=== PATIENT | male | born 1945 | race Caucasian/White ===

== ENCOUNTER 2019-07-06 07:26 | Inpatient (IN) ==
--- NOTE | 2019-07-05 09:45 | XRay Report ---
CLINICAL INFORMATION: Preop. New diagnosis colon cancer COMPARISON: None. TECHNIQUE: PA and Lateral views FINDINGS: The heart size, mediastinum and pulmonary vessels are unremarkable. The lungs are clear. There are no effusions. The bones and soft tissues are within normal limits. IMPRESSION: Normal chest. No acute cardiopulmonary or metastatic disease Interpreted and Authenticated by: Florin Rich 07/05/19
[2019-07-05 11:30] LABS: Basophils # (Auto) 0.02 K/mcL (0.00-0.30); Basophils % (Auto) 0.3 % (0.0-2.0); Eosinophils # (Auto) 0.16 K/mcL (0.00-0.70); Granulocytes % (Auto) 56.6 % (38.0-78.0); Hemoglobin 12.3 g/dL (13.7-17.5); Lymphocytes # (Auto) 2.35 K/mcL (1.50-4.80); Lymphocytes % (Auto) 29.9 % (15.5-49.0); Mean Cell Volume 73.4 fL (80.0-100.0); Mean Corpuscular HGB Conc 31.5 g/dL (31.0-36.0); Mean Platelet Volume 9.9 fL (7.4-10.4); Monocytes # (Auto) 0.88 K/mcL (0.10-0.90); Monocytes % (Auto) 11.2 % (1.0-12.0); Platelet Count 369 K/mcL (140-440); RBC 5.31 M/mcL (4.63-6.08); Red Cell Distribution Width 17.7 % (11.5-14.5); WBC 7.9 K/mcL (4.50-11.00)
[2019-07-05 11:40] LABS: Prothrombin Time 13.3 sec (11.9-14.5)
[2019-07-05 11:41] LABS: ALT/SGPT 17 U/l (0-40); AST/SGOT 20 U/l (0-37); Albumin 4.5 gm/dL (3.2-5.2); Albumin/Globulin Ratio 1.5 (1.0-2.3); Alkaline Phosphatase 83 U/L (39-117); Bilirubin,Total 0.3 mg/dL (0.0-1.0); Blood Urea Nitrogen 17 mg/dl (8-23); Calcium 9.9 mg/dl (8.6-10.4); Carbon Dioxide 23 mmol/L (22-30); Chloride 98 mmol/L (96-108); Globulin 3.1 gm/dL (2.2-3.7); Glomerular Filtration Rate 73; Glucose 123 mg/dL (70-105)
[2019-07-05 11:49] LABS: Estimated Average Glucose(eAG) 160 mg/dL; Hemoglobin A1C 7.2 % HGB (4.0-6.0)
[~2019-07-06 07:26] MED LIST: ceFAZolin 2 GM in DEXTROSE 5% IN WATER 50 ML IV SCH; metroNIDAZOLE 500 MG/100 ML BAG IV SCH
[2019-07-06] MEDS ORDERED: SCOPOLAMINE 1 PATCH PATCH TOPICAL PRN (07:30)
[2019-07-06] MEDS ORDERED: IPRATROPIUM/ALBUTEROL 3 ML AMPUL.NEB NEB PRN ×2 (07:30→12:16)
[2019-07-06] MEDS ORDERED: MAGNESIUM SULFATE 2 GM/50 ML BAG IV ONE ×2 (08:20→09:25)
[2019-07-06] MEDS ORDERED: DEXAMETHASONE 10 MG/ML VIAL IV ONE (09:25)
[2019-07-06] MEDS ORDERED: MIDAZOLAM 2 MG/2 ML VIAL IV ONE (09:25)
[2019-07-06] MEDS ORDERED: HETASTARCH 6% 500 ML BAG IV ONE (09:25)
[2019-07-06] MEDS ORDERED: GLYCOPYRROLATE 0.2 MG/ML VIAL IV ONE (09:25)
[2019-07-06] MEDS ORDERED: PHENYLEPHRINE 10 MG/ML VIAL IV ONE ×2 (09:25)
[2019-07-06] MEDS ORDERED: SUCCINYLCHOLINE 20 MG/ML ML IV ONE (09:25)
[2019-07-06] MEDS ORDERED: HYDROmorphone* 2 MG/ML VIAL IV ONE (09:25)
[2019-07-06] MEDS ORDERED: SUGAMMADEX SODIUM 200 MG/2 ML VIAL IV ONE (09:25)
[2019-07-06] MEDS ORDERED: ROCURONIUM 10 MG/ML ML IV ONE (09:25)
[2019-07-06] MEDS ORDERED: ROPIVACAINE HCL/PF 20 ML VIAL IJ ONE (09:25)
[2019-07-06] MEDS ORDERED: KETAMINE 100 MG/ML ML IV ONE (09:25)
[2019-07-06] MEDS ORDERED: ePHEDrine 50 MG/ML AMPUL IV ONE (09:25)
[2019-07-06] MEDS ORDERED: fentaNYL 100 MCG/2 ML VIAL IV ONE (09:25)
[2019-07-06] MEDS ORDERED: PROPOFOL 200 MG/20 ML VIAL IV ONE (09:25)
[2019-07-06] MEDS ORDERED: LIDOCAINE HCL/PF 100 MG/5 ML SYRINGE IV ONE (09:25)
[2019-07-06] MEDS ORDERED: fentaNYL 100 MCG/2 ML VIAL IV PRN (12:16)
[2019-07-06] MEDS ORDERED: LABETALOL 5 MG/ML ML IV PRN (12:16)
[2019-07-06] MEDS ORDERED: LACTATED RINGERS 250 ML IV PRN (12:16)
[2019-07-06] MEDS ORDERED: ACETAMINOPHEN 1,000 MG/100 ML BOTTLE IV ONE (12:16)
[2019-07-06] MEDS ORDERED: NALOXONE HCL 0.4 MG/ML VIAL IV PRN (12:16)
[2019-07-06] MEDS ORDERED: METHOCARBAMOL 1,000 MG/10 ML VIAL IV PRN (12:16)
[2019-07-06] MEDS ORDERED: FLUMAZENIL 0.1 MG/ML ML IV PRN (12:16)
[2019-07-06] MEDS ORDERED: BENZOCAINE/MENTHOL 1 LOZENGE PO PRN (12:16)
[2019-07-06] MEDS ORDERED: HYDROmorphone* 2 MG/ML VIAL IV PRN (12:16)
[2019-07-06] MEDS ORDERED: LACTATED RINGERS 1,000 ML IV SCH (12:30)
--- NOTE | 2019-07-06 13:03 | Brief Operative Note ---
Date of procedure: 07/06/19 Pre-op diagnosis: sigmoid colon carcinoma Post-op diagnosis: other (sigmoid colon carcinoma) Procedure: segmental sigmoid colon resection Grafts/Implants: No (missy drain x1) Anesthesia: GETA Findings: ulcerated neplasm of distal sigmoid immediately above peritoneal reflection ; thickened foreshortened mesentery with extensive appendiceal epiploica Complications: none Surgeon: Gladys Hewitt Estimated blood loss (cc): 50 Specimens Removed/Pathology: other (infarcted appendiceal epiploica;sigmoid colon segment) Condition: stable Disposition: PACU
[2019-07-06] MEDS ORDERED: PROMETHAZINE 25 MG/ML VIAL IV PRN (14:46)
[2019-07-06] MEDS ORDERED: ONDANSETRON 4 MG/2 ML VIAL IV PRN (14:46)
[2019-07-06] MEDS ORDERED: metroNIDAZOLE 500 MG/100 ML BAG IV SCH (14:46)
[2019-07-06] MEDS ORDERED: ceFAZolin 2 GM in DEXTROSE 5% IN WATER 50 ML IV SCH (14:46)
[2019-07-06] MEDS ORDERED: ACETAMINOPHEN 1,000 MG in PREMIX 1 BAG IV SCH (14:46)
[2019-07-06] MEDS: 0.9 % SODIUM CHLORIDE 10 ML SYRINGE IV SCH ×2 (15:12→23:19)
[2019-07-06] MEDS: LACTATED RINGERS 1,000 ML IV SCH (15:12)
[2019-07-06] MEDS: LEVOFLOXACIN 750 MG/150 ML BAG IV SCH (15:39)
[2019-07-06] MEDS: METOCLOPRAMIDE 10 MG/2 ML VIAL IV SCH ×2 (17:54→23:54)
[2019-07-06] MEDS: PANTOPRAZOLE 40 MG VIAL IV SCH (17:55)
[2019-07-06] MEDS: ACETAMINOPHEN 1,000 MG/100 ML BOTTLE IV SCH (20:00)
[2019-07-07] MEDS: HYDROmorphone* 2 MG/ML VIAL IV PRN ×4 (00:21→20:25)
[2019-07-07] MEDS: LACTATED RINGERS 1,000 ML IV SCH ×3 (01:00→17:24)
[2019-07-07] MEDS: ACETAMINOPHEN 1,000 MG/100 ML BOTTLE IV SCH ×2 (01:53→07:26)
[2019-07-07] MEDS: METOCLOPRAMIDE 10 MG/2 ML VIAL IV SCH ×4 (05:25→23:27)
[2019-07-07] MEDS: 0.9 % SODIUM CHLORIDE 10 ML SYRINGE IV SCH ×3 (05:26→20:25)
[2019-07-07] MEDS: PANTOPRAZOLE 40 MG VIAL IV SCH ×2 (07:26→17:12)
[2019-07-07] MEDS: LEVOFLOXACIN 750 MG/150 ML BAG IV SCH (09:12)
[2019-07-07] MEDS ORDERED: LORazepam 2 MG/ML VIAL IV PRN (14:08)
--- NOTE | 2019-07-07 14:13 | General Surgery Progress Note ---
Subjective Patient reports: feels better, pain is less, no flatus, no bowel movement, afebrile Narrative: Note initiated : 07/07/19 at 2:11 pm Service Date, if different from initiated Date: [] Patient: Tarun Alvarez 74 y/o M admitted on 07/06/19 for Sigmoid Colectomy. Chief Complaint: [Patient is clinically stable. He has some anxiety but otherwise states that he feels fine. He has not had any flatus. He still has bleeding from his Lamb catheter. Urine output appears to be stable and adequate. He denies respiratory difficulty and denies ches pain.] Objective Temp Pulse Resp BP Pulse Ox 97.8 F 78 14 124/95 93 07/07/19 11:57 07/07/19 11:57 07/07/19 11:57 07/07/19 11:57 07/07/19 11:57 - Additional Data Intake & Output - Last 24 hours: Intake & Output 07/05/19 07/06/19 07/07/19 07/08/19 05:59 05:59 05:59 05:59 Intake Total 3400 1100 Output Total 1355 Balance 2045 1100 Weight 239 lb 8 oz 235 lb 11.2 oz 235 lb 11.2 oz - General physical appearance well developed, well nourished, no distress, moderate pain - Eyes PERRL, normal ocular movement - ENT normal pinna, normal nares, normal mucosa, no hearing loss, no congestion - Neck no masses, no bruits, trachea midline, no lymphadenopathy, no venous distension - Respiratory normal expansion, normal respiratory effort, clear to auscultation - Cardiovascular Cardiovascular exam: Present: normal rate and rhythm, RRR, +S1, +S2. Absent: JVD, tachycardia - Abdomen tender (moderate incisional tenderness;), bowel sounds (present), surgical scars (RAPHAEL drainage is sanguinous), masses (none), distended (moderate abdominal distention) - Integumentary no rash, no growths, no abnormal pigmentation - Neurologic normal coordination, normal sensation - Musculoskeletal normal gait, normal posture - Psychiatric oriented to time, oriented to person, oriented to place, speech is normal, memory intact - Labs 07/05/19 09:26 07/05/19 09:26 Assessment and Plan (1) Neoplasm of sigmoid colon Status: Acute Assessment and plan: Clinically stable Current Visit: Yes (2) Hematuria Status: Acute Assessment and plan: We'll continue Lamb catheter in place. Check CBC Current Visit: Yes (3) Generalized anxiety disorder Status: Acute Assessment and plan: Ativan 0.5 mg IV every 8 4 hours as needed Current Visit: Yes (4) Sleep apnea Status: Chronic Current Visit: No (5) Type 2 diabetes mellitus without complication Problem details: 06/14/2008 Status: Chronic Assessment and plan: Start Accu-Cheks with Humalog coverage Current Visit: No (6) BPH (benign prostatic hyperplasia) Status: Chronic Current Visit: No - Time Spent With Patient Total time spent is greater than 50% in coordination of care (as documented) at patient's floor/unit and/or counseling patient:
[2019-07-07] MEDS: INSULIN LISPRO 1 UNIT/0.01 ML UNIT SQ SCH ×2 (17:17→23:31)
[2019-07-08] MEDS: LACTATED RINGERS 1,000 ML IV SCH ×6 (02:05→21:11)
[2019-07-08] MEDS: 0.9 % SODIUM CHLORIDE 10 ML SYRINGE IV SCH ×3 (05:13→20:20)
[2019-07-08] MEDS: METOCLOPRAMIDE 10 MG/2 ML VIAL IV SCH ×4 (05:13→23:42)
[2019-07-08] MEDS: INSULIN LISPRO 1 UNIT/0.01 ML UNIT SQ SCH ×4 (05:17→23:43)
[2019-07-08] MEDS ORDERED: hydrALAZINE 20 MG/ML VIAL ONE (05:41)
[2019-07-08] MEDS: hydrALAZINE 20 MG/ML VIAL IV PRN ×3 (05:42→22:42)
[2019-07-08] MEDS: HYDROmorphone* 2 MG/ML VIAL IV PRN ×2 (06:31→20:20)
[2019-07-08 07:11] LABS: Basophils # (Auto) 0.01 K/mcL (0.00-0.30); Basophils % (Auto) 0.1 % (0.0-2.0); Eosinophils # (Auto) 0 K/mcL (0.00-0.70); Eosinophils % (Auto) 0 % (0.0-7.0); Granulocytes % (Auto) 79.9 % (38.0-78.0); Hematocrit 31.1 % (40.1-51.0); Hemoglobin 9.7 g/dL (13.7-17.5); Lymphocytes # (Auto) 1.69 K/mcL (1.50-4.80); Lymphocytes % (Auto) 9.3 % (15.5-49.0); Mean Cell Volume 73.7 fL (80.0-100.0); Mean Corpuscular HGB Conc 31.2 g/dL (31.0-36.0); Mean Platelet Volume 9.8 fL (7.4-10.4); Monocytes # (Auto) 1.94 K/mcL (0.10-0.90); Monocytes % (Auto) 10.7 % (1.0-12.0); Platelet Count 332 K/mcL (140-440); RBC 4.22 M/mcL (4.63-6.08); Red Cell Distribution Width 18.3 % (11.5-14.5); WBC 18.2 K/mcL (4.50-11.00)
[2019-07-08 07:54] LABS: ALT/SGPT 11 U/l (0-40); AST/SGOT 18 U/l (0-37); Albumin 3.5 gm/dL (3.2-5.2); Albumin/Globulin Ratio 1.2 (1.0-2.3); Alkaline Phosphatase 66 U/L (39-117); Bilirubin,Direct < 0.2 mg/dL (0.0-0.3); Bilirubin,Total 0.4 mg/dL (0.0-1.0); Blood Urea Nitrogen 15 mg/dl (8-23); Calcium 9.1 mg/dl (8.6-10.4); Carbon Dioxide 21 mmol/L (22-30); Chloride 97 mmol/L (96-108); Globulin 2.9 gm/dL (2.2-3.7); Glomerular Filtration Rate 73; Glucose 138 mg/dL (70-105); Lactate Dehydrogenase 192 U/L (94-250); Triglycerides 127 mg/dl (<150); Uric Acid 4.5 mg/dL (2.5-8.0)
[2019-07-08] MEDS: PANTOPRAZOLE 40 MG VIAL IV SCH ×2 (08:13→17:15)
[2019-07-08 08:21] LABS: Phosphorous 2.3 mg/dL (2.7-4.5)
[2019-07-08] MEDS: LEVOFLOXACIN 750 MG/150 ML BAG IV SCH (08:56)
--- NOTE | 2019-07-08 14:43 | General Surgery Progress Note ---
Subjective Patient reports: feels better, pain is less, no flatus, no bowel movement, afebrile Narrative: Note initiated : 07/08/19 at 2:41 pm Service Date, if different from initiated Date: [] Patient: Tarun Alvarez 74 y/o M admitted on 07/06/19 for Sigmoid Colectomy. Chief Complaint: [patient is stable and is afebrile. He's not had flatus or bowel movement yet. He does have significant abdominal distention. White blood count 18.2, hemoglobin 9.7, hematocrit 31.1, phosphorus 2.. he had hallucinations with the lorazepam so it will be discontinued.] Objective Temp Pulse Resp BP Pulse Ox 99.2 F H 90 18 177/91 93 07/08/19 12:00 07/08/19 12:00 07/08/19 12:00 07/08/19 12:00 07/08/19 12:00 - Additional Data Intake & Output - Last 24 hours: Intake & Output 07/06/19 07/07/19 07/08/19 07/09/19 05:59 05:59 05:59 05:59 Intake Total 3400 4120 1150 Output Total 1355 3165 Balance 2045 955 1150 Weight 239 lb 8 oz 235 lb 11.2 oz 228 lb 8 oz - General physical appearance well developed, well nourished, no distress - Eyes PERRL, normal ocular movement - ENT normal pinna, normal nares, normal mucosa, no hearing loss, no congestion - Neck no masses, no bruits, trachea midline, no lymphadenopathy, no venous distension - Respiratory normal expansion, normal respiratory effort, clear to auscultation - Cardiovascular Cardiovascular exam: Present: normal rate and rhythm, RRR, +S1, +S2. Absent: JVD, tachycardia - Abdomen distended (abdomen is distended but soft and pliable; good active bowel sounds; RAPHAEL drainage is serosanguineous) - Integumentary no rash, no growths, no abnormal pigmentation - Neurologic normal coordination, normal sensation - Musculoskeletal normal gait, normal posture - Psychiatric oriented to time, oriented to person, oriented to place, speech is normal, memory intact - Labs 07/08/19 05:25 07/08/19 05:25 Diabetes panel 07/08/19 Range/Units 05:25 Sodium 132 L (133-145) mmol/L Potassium 4.0 (3.3-5.1) mmol/L Chloride 97 (96-108) mmol/L Carbon Dioxide 21 L (22-30) mmol/L BUN 15 (8-23) mg/dl Creatinine 1.0 (0.7-1.2) mg/dl Glucose 138 H (70-105) mg/dL Calcium 9.1 (8.6-10.4) mg/dl AST 18 (0-37) U/l ALT 11 (0-40) U/l Alkaline Phosphatase 66 (39-117) U/L Total Protein 6.4 (5.9-8.4) gm/dL Albumin 3.5 (3.2-5.2) gm/dL Triglycerides 127 (<150) mg/dl Calcium panel 07/08/19 Range/Units 05:25 Calcium 9.1 (8.6-10.4) mg/dl Phosphorus 2.3 L (2.7-4.5) mg/dL Albumin 3.5 (3.2-5.2) gm/dL Pituitary panel 07/08/19 Range/Units 05:25 Sodium 132 L (133-145) mmol/L Potassium 4.0 (3.3-5.1) mmol/L Chloride 97 (96-108) mmol/L Carbon Dioxide 21 L (22-30) mmol/L BUN 15 (8-23) mg/dl Creatinine 1.0 (0.7-1.2) mg/dl Glucose 138 H (70-105) mg/dL Calcium 9.1 (8.6-10.4) mg/dl Adrenal panel 07/08/19 Range/Units 05:25 Sodium 132 L (133-145) mmol/L Potassium 4.0 (3.3-5.1) mmol/L Chloride 97 (96-108) mmol/L Carbon Dioxide 21 L (22-30) mmol/L BUN 15 (8-23) mg/dl Creatinine 1.0 (0.7-1.2) mg/dl Glucose 138 H (70-105) mg/dL Calcium 9.1 (8.6-10.4) mg/dl Total Bilirubin 0.4 (0.0-1.0) mg/dL AST 18 (0-37) U/l ALT 11 (0-40) U/l Alkaline Phosphatase 66 (39-117) U/L Total Protein 6.4 (5.9-8.4) gm/dL Albumin 3.5 (3.2-5.2) gm/dL Assessment and Plan (1) Neoplasm of sigmoid colon Status: Resolved Assessment and plan: Clinically stable Current Visit: Yes (2) Hematuria Status: Acute Assessment and plan: We'll continue Lamb catheter in place. Current Visit: Yes (3) Generalized anxiety disorder Status: Acute Assessment and plan: And diazepam 5 mg IV every 8 hours when necessary Discontinue , lorazepam Current Visit: Yes (4) Sleep apnea Status: Chronic Assessment and plan: Will use supplemental oxygen at bedtime as needed Current Visit: No (5) Type 2 diabetes mellitus without complication Problem details: 06/14/2008 Status: Chronic Assessment and plan: Start Accu-Cheks with Humalog coverage Current Visit: No (6) BPH (benign prostatic hyperplasia) Status: Chronic Current Visit: No - Time Spent With Patient Total time spent is greater than 50% in coordination of care (as documented) at patient's floor/unit and/or counseling patient:
[2019-07-08] MEDS: DIAZEPAM 10 MG/2 ML SYRINGE IV PRN (18:56)
[2019-07-09] MEDS: HYDROmorphone* 2 MG/ML VIAL IV PRN ×2 (01:13→17:13)
[2019-07-09] MEDS: DIAZEPAM 10 MG/2 ML SYRINGE IV PRN ×2 (01:14→17:13)
[2019-07-09] MEDS: hydrALAZINE 20 MG/ML VIAL IV PRN ×5 (03:37→23:53)
[2019-07-09] MEDS: LACTATED RINGERS 1,000 ML IV SCH ×4 (03:52→21:27)
[2019-07-09] MEDS: METOCLOPRAMIDE 10 MG/2 ML VIAL IV SCH ×4 (05:29→23:53)
[2019-07-09] MEDS: 0.9 % SODIUM CHLORIDE 10 ML SYRINGE IV SCH ×3 (05:32→20:06)
[2019-07-09] MEDS: INSULIN LISPRO 1 UNIT/0.01 ML UNIT SQ SCH ×3 (05:32→17:12)
[2019-07-09] MEDS: PANTOPRAZOLE 40 MG VIAL IV SCH ×2 (06:52→17:12)
[2019-07-09 06:53] LABS: Basophils # (Auto) 0.02 K/mcL (0.00-0.30); Basophils % (Auto) 0.1 % (0.0-2.0); Eosinophils # (Auto) 0.02 K/mcL (0.00-0.70); Eosinophils % (Auto) 0.1 % (0.0-7.0); Granulocytes % (Auto) 78.1 % (38.0-78.0); Hemoglobin 9.7 g/dL (13.7-17.5); Lymphocytes # (Auto) 1.52 K/mcL (1.50-4.80); Lymphocytes % (Auto) 10.6 % (15.5-49.0); Mean Cell Volume 73.3 fL (80.0-100.0); Mean Corpuscular HGB Conc 32.3 g/dL (31.0-36.0); Mean Platelet Volume 9.5 fL (7.4-10.4); Monocytes # (Auto) 1.59 K/mcL (0.10-0.90); Monocytes % (Auto) 11.1 % (1.0-12.0); Platelet Count 299 K/mcL (140-440); RBC 4.09 M/mcL (4.63-6.08); Red Cell Distribution Width 18.4 % (11.5-14.5); WBC 14.3 K/mcL (4.50-11.00)
[2019-07-09 07:21] LABS: ALT/SGPT 11 U/l (0-40); AST/SGOT 20 U/l (0-37); Albumin 3.4 gm/dL (3.2-5.2); Albumin/Globulin Ratio 1.1 (1.0-2.3); Alkaline Phosphatase 65 U/L (39-117); Bilirubin,Direct < 0.2 mg/dL (0.0-0.3); Bilirubin,Total 0.5 mg/dL (0.0-1.0); Blood Urea Nitrogen 11 mg/dl (8-23); Calcium 9.2 mg/dl (8.6-10.4); Carbon Dioxide 20 mmol/L (22-30); Glomerular Filtration Rate 83; Glucose 122 mg/dL (70-105); Lactate Dehydrogenase 189 U/L (94-250); Triglycerides 114 mg/dl (<150); Uric Acid 4.3 mg/dL (2.5-8.0)
[2019-07-09 07:28] LABS: Chloride 95 mmol/L (96-108); Phosphorous 2.9 mg/dL (2.7-4.5)
[2019-07-09] MEDS: LEVOFLOXACIN 750 MG/150 ML BAG IV SCH (07:59)
--- NOTE | 2019-07-09 13:35 | Surgical Pathology Report ---
HISTOLOGY SPECIMEN MICROSCOPIC DIAGNOSIS COLON, SIGMOID, PARTIAL COLECTOMY: -- INVASIVE MODERATELY DIFFERENTIATED ADENOCARCINOMA, WITH THE FOLLOWING FEATURES: - TUMOR SIZE: 5.5 x 4.0 x 1.5 cm. - MACROSCOPIC TUMOR PERFORATION: NOT IDENTIFIED. - HISTOLOGIC GRADE: GRADE 2 (MODERATELY DIFFERENTIATED). - TUMOR EXTENSION: TUMOR INVADES THROUGH THE MUSCULARIS PROPRIA INTO PERICOLORECTAL TISSUE. - MARGINS: UNINVOLVED BY INVASIVE CARCINOMA. - LYMPHOVASCULAR INVASION: NOT IDENTIFIED. - PERINEURAL INVASION: NOT IDENTIFIED. - TUMOR DEPOSITS: PRESENT, FOUR. - REGIONAL LYMPH NODES: METASTATIC CARCINOMA PRESENT IN SIX OF EIGHTEEN LYMPH NODES (6/18). - PATHOLOGIC STAGE: pT3 N2a. (RLF:sln) SUMMARY CANCER DATA Procedure: Sigmoidectomy. Tumor Site: Sigmoid. Tumor Size: 5.5 x 4.0 x 1.5 cm. Macroscopic Tumor Perforation: Not identified. Histologic Type: Adenocarcinoma. Histologic Grade: Grade 2 (moderately differentiated). Microscopic Tumor Extension: Tumor invades through the muscularis propria into pericolorectal tissue. Margins: All margins are uninvolved by invasive carcinoma. Carcinoma is 1.5 and 1.6 cm from proximal and distal margins and 2.3 cm from mesenteric margin. Lymph-Vascular Invasion: Not identified. Perineural Invasion: Not identified. Tumor Deposits (discontinuous extramural extension): Present, four. Regional Lymph nodes: Number of lymph nodes involved: 6. Number of lymph nodes examined: 18. Pathologic Stage: pT3 pN2a. PROCEDURAL IMPRESSION Sigmoid colon cancer. GROSS DESCRIPTION The specimen is received in formalin as sigmoid colon and consists of a short segment of bowel with a near concentric rim of attached adipose tissue that measures 8.5 cm in length by 6.0 x 6.0 cm. One luminal margin is stapled, the other is open. There is dark black discoloration of adipose tissue near the open margin. The specimen is opened revealing a small amount of fecal material with a large elevated, ulcerated mass that measures 5.5 x 4.0 cm. This mass is present 1.5 cm from the opened margin and 1.6 cm from the stapled margin. The distance to the resected adipose tissue margin is 3.0 cm. The mass is serially sectioned revealing gross penetration of the muscularis propria with extension into subjacent adipose tissue, and a maximum thickness of 1.5 cm centrally. The distance from the deepest point of invasion to the resected mesenteric margin is 2.3 cm. Within the subjacent adipose tissue, 1.5 cm from the inked opened margin there is a grossly positive lymph node with necrosis and irregular borders that measures 1.5 x 1.4 x 1.9 cm. A second grossly positive lymph node is present with irregular infiltrative edges that measures 1.6 x 1.0 x 1.0 cm. Sections submitted according to the following slide zamora: A1 - opened margin (inked black), stapled margin and resected mesenteric margin; A2 - cross section of mass, including inked opened margin; A3 - cross section of mass, including stapled margin; A4-A7 - additional cross sections of mass (A4 and A5 represent complete cross section of tumor); A8 - sales representative facility services cross section of grossly positive lymph node; A9 - possible paracolonic lymph nodes (one inked black and bisected); A10 - possible paracolonic lymph nodes (one inked black and trisected); A11 - possible paracolonic lymph nodes, including sales representative facility services cross section of second grossly positive node; A12 - possible paracolonic lymph nodes, one inked black and bisected; A13 - possible paracolonic lymph nodes. (ACP:adj) Electronically Signed by: Sumi Kahn M.D.
--- NOTE | 2019-07-09 17:30 | General Surgery Progress Note ---
Subjective Patient reports: feels better, still having pain, pain is less, flatus, no bowel movement, afebrile Narrative: Note initiated : 07/09/19 at 5:30 pm Service Date, if different from initiated Date: [] Patient: Tarun Alvarez 74 y/o M admitted on 07/06/19 for Sigmoid Colectomy. Chief Complaint: [Patient continues to improve. He's had some flatus but no bowel movement. He states that he passes gas, about every 2 hours. He denies nausea. His pain is controlled. He still has significant anxiety. White blood count 14.3, hemoglobin 9.7, hematocrit 30, BUN 11, creatinine 0.9.] Objective Temp Pulse Resp BP Pulse Ox 98.0 F 91 H 20 164/83 97 07/09/19 12:00 07/09/19 12:00 07/09/19 12:00 07/09/19 12:00 07/09/19 12:00 - Additional Data Intake & Output - Last 24 hours: Intake & Output 07/07/19 07/08/19 07/09/19 07/10/19 05:59 05:59 05:59 05:59 Intake Total 3400 4120 3350 1150 Output Total 1355 3165 2755 1150 Balance 2045 955 595 0 Weight 235 lb 11.2 oz 228 lb 8 oz 227 lb - General physical appearance well developed, well nourished, no distress - Eyes PERRL, normal ocular movement - ENT normal pinna, normal nares, normal mucosa, no hearing loss, no congestion - Neck no masses, no bruits, trachea midline, no lymphadenopathy, no venous distension - Respiratory normal expansion, normal respiratory effort, clear to auscultation - Cardiovascular Cardiovascular exam: Present: normal rate and rhythm, RRR, +S1, +S2. Absent: JVD, tachycardia - Abdomen non tender, bowel sounds (present), surgical scars (none), masses (none) - Integumentary no rash, no growths, no abnormal pigmentation - Neurologic normal coordination, normal sensation - Musculoskeletal normal gait, normal posture - Psychiatric oriented to time, oriented to person, oriented to place, speech is normal, memory intact - Labs 07/09/19 05:35 07/09/19 05:35 Diabetes panel 07/09/19 Range/Units 05:35 Sodium 130 L (133-145) mmol/L Potassium 3.5 (3.3-5.1) mmol/L Chloride 95 L (96-108) mmol/L Carbon Dioxide 20 L (22-30) mmol/L BUN 11 (8-23) mg/dl Creatinine 0.9 (0.7-1.2) mg/dl Glucose 122 H (70-105) mg/dL Calcium 9.2 (8.6-10.4) mg/dl AST 20 (0-37) U/l ALT 11 (0-40) U/l Alkaline Phosphatase 65 (39-117) U/L Total Protein 6.4 (5.9-8.4) gm/dL Albumin 3.4 (3.2-5.2) gm/dL Triglycerides 114 (<150) mg/dl Calcium panel 07/09/19 Range/Units 05:35 Calcium 9.2 (8.6-10.4) mg/dl Phosphorus 2.9 (2.7-4.5) mg/dL Albumin 3.4 (3.2-5.2) gm/dL Pituitary panel 07/09/19 Range/Units 05:35 Sodium 130 L (133-145) mmol/L Potassium 3.5 (3.3-5.1) mmol/L Chloride 95 L (96-108) mmol/L Carbon Dioxide 20 L (22-30) mmol/L BUN 11 (8-23) mg/dl Creatinine 0.9 (0.7-1.2) mg/dl Glucose 122 H (70-105) mg/dL Calcium 9.2 (8.6-10.4) mg/dl Adrenal panel 07/09/19 Range/Units 05:35 Sodium 130 L (133-145) mmol/L Potassium 3.5 (3.3-5.1) mmol/L Chloride 95 L (96-108) mmol/L Carbon Dioxide 20 L (22-30) mmol/L BUN 11 (8-23) mg/dl Creatinine 0.9 (0.7-1.2) mg/dl Glucose 122 H (70-105) mg/dL Calcium 9.2 (8.6-10.4) mg/dl Total Bilirubin 0.5 (0.0-1.0) mg/dL AST 20 (0-37) U/l ALT 11 (0-40) U/l Alkaline Phosphatase 65 (39-117) U/L Total Protein 6.4 (5.9-8.4) gm/dL Albumin 3.4 (3.2-5.2) gm/dL Assessment and Plan (1) Neoplasm of sigmoid colon Status: Resolved Assessment and plan: Clinically stable. We'll probably be able to discontinue nasogastric tube in the morning Current Visit: Yes (2) Hematuria Status: Acute Assessment and plan: We'll continue Lamb catheter in place. Current Visit: Yes (3) Generalized anxiety disorder Status: Acute Assessment and plan: And diazepam 5 mg IV every 8 hours when necessary Discontinue , lorazepam Current Visit: Yes (4) Sleep apnea Status: Chronic Assessment and plan: Will use supplemental oxygen at bedtime as needed Current Visit: No (5) Type 2 diabetes mellitus without complication Problem details: 06/14/2008 Status: Chronic Assessment and plan: Start Accu-Cheks with Humalog coverage Current Visit: No (6) BPH (benign prostatic hyperplasia) Status: Chronic Current Visit: No - Time Spent With Patient Total time spent is greater than 50% in coordination of care (as documented) at patient's floor/unit and/or counseling patient:
[2019-07-10] MEDS: INSULIN LISPRO 1 UNIT/0.01 ML UNIT SQ SCH ×4 (00:12→17:31)
[2019-07-10] MEDS: 0.9 % SODIUM CHLORIDE 10 ML SYRINGE IV SCH ×4 (05:13→20:17)
[2019-07-10] MEDS: METOCLOPRAMIDE 10 MG/2 ML VIAL IV SCH ×3 (05:13→17:26)
[2019-07-10] MEDS: hydrALAZINE 20 MG/ML VIAL IV PRN ×4 (05:13→19:30)
[2019-07-10] MEDS: LACTATED RINGERS 1,000 ML IV SCH ×3 (05:34→18:30)
[2019-07-10] MEDS: PANTOPRAZOLE 40 MG VIAL IV SCH ×2 (07:01→17:26)
[2019-07-10] MEDS: HYDROmorphone* 2 MG/ML VIAL IV PRN (07:52)
[2019-07-10] MEDS: LEVOFLOXACIN 750 MG/150 ML BAG IV SCH (09:40)
--- NOTE | 2019-07-10 17:26 | General Surgery Progress Note ---
Subjective Patient reports: feels better, pain is less, flatus, no bowel movement, afebrile Narrative: Note initiated : 07/10/19 at 5:26 pm Service Date, if different from initiated Date: [] Patient: Tarun Alvarez 74 y/o M admitted on 07/06/19 for Sigmoid Colectomy. Chief Complaint: [Patient is stable, improved. he is still having flatus but no bowel movements. Patient has some small clots in his urine earlier but his urine is clear at this time.] Objective Temp Pulse Resp BP Pulse Ox 98.1 F 58 L 20 152/83 92 07/10/19 08:00 07/10/19 08:00 07/10/19 08:00 07/10/19 08:00 07/10/19 08:00 - Additional Data Intake & Output - Last 24 hours: Intake & Output 07/08/19 07/09/19 07/10/19 07/11/19 05:59 05:59 05:59 05:59 Intake Total 4120 3350 3300 1413 Output Total 3165 2755 2500 15 Balance 955 361 770 7159 Weight 228 lb 8 oz 227 lb 229 lb 8 oz - General physical appearance well developed, well nourished, no distress, moderate pain - Eyes PERRL, normal ocular movement - ENT normal pinna, normal nares, normal mucosa, no congestion, decreased hearing - Neck no masses, no bruits, trachea midline, no lymphadenopathy, no venous distension - Respiratory normal expansion, normal respiratory effort, clear to auscultation - Cardiovascular Cardiovascular exam: Present: normal rate and rhythm, RRR, +S1, +S2. Absent: JVD, tachycardia - Abdomen tender (mild tender incision), bowel sounds (present), surgical scars (none), masses (none) - Integumentary no rash, no growths, no abnormal pigmentation - Neurologic normal coordination, normal sensation - Musculoskeletal normal gait, normal posture - Psychiatric oriented to time, oriented to person, oriented to place, speech is normal, memory intact - Labs 07/09/19 05:35 07/09/19 05:35 Assessment and Plan (1) Neoplasm of sigmoid colon Status: Resolved Assessment and plan: Clinically stable. Discontinue nasogastric tube. Discontinue Lamb catheter. Decrease IV to 75 cc per hour Current Visit: Yes (2) Hematuria Status: Resolved Assessment and plan: Lamb catheter is discontinued Current Visit: Yes (3) Generalized anxiety disorder Status: Acute Assessment and plan: And diazepam 5 mg IV every 8 hours when necessary Discontinue , lorazepam Current Visit: Yes (4) Sleep apnea Status: Chronic Assessment and plan: Will use supplemental oxygen at bedtime as needed Current Visit: No (5) Type 2 diabetes mellitus without complication Problem details: 06/14/2008 Status: Chronic Assessment and plan: Start Accu-Cheks with Humalog coverage Current Visit: No (6) BPH (benign prostatic hyperplasia) Status: Chronic Current Visit: No - Time Spent With Patient Total time spent is greater than 50% in coordination of care (as documented) at patient's floor/unit and/or counseling patient:
[2019-07-10] MEDS: DIAZEPAM 10 MG/2 ML SYRINGE IV PRN (21:07)
[2019-07-11] MEDS: METOCLOPRAMIDE 10 MG/2 ML VIAL IV SCH ×5 (00:03→23:49)
[2019-07-11] MEDS: INSULIN LISPRO 1 UNIT/0.01 ML UNIT SQ SCH ×5 (00:05→23:56)
[2019-07-11] MEDS: hydrALAZINE 20 MG/ML VIAL IV PRN ×4 (03:24→19:18)
[2019-07-11] MEDS: LACTATED RINGERS 1,000 ML IV SCH ×3 (03:24→19:20)
[2019-07-11] MEDS: 0.9 % SODIUM CHLORIDE 10 ML SYRINGE IV SCH ×3 (05:28→20:07)
[2019-07-11 06:16] LABS: Basophils # (Auto) 0.02 K/mcL (0.00-0.30); Basophils % (Auto) 0.2 % (0.0-2.0); Eosinophils % (Auto) 0.9 % (0.0-7.0); Granulocytes % (Auto) 72.3 % (38.0-78.0); Hematocrit 29.7 % (40.1-51.0); Hemoglobin 9.6 g/dL (13.7-17.5); Lymphocytes # (Auto) 1.41 K/mcL (1.50-4.80); Lymphocytes % (Auto) 12.9 % (15.5-49.0); Mean Cell Volume 72.3 fL (80.0-100.0); Mean Corpuscular HGB Conc 32.3 g/dL (31.0-36.0); Mean Platelet Volume 9.5 fL (7.4-10.4); Monocytes % (Auto) 13.7 % (1.0-12.0); Platelet Count 328 K/mcL (140-440); RBC 4.11 M/mcL (4.63-6.08); Red Cell Distribution Width 18.3 % (11.5-14.5)
[2019-07-11 06:31] LABS: ALT/SGPT 26 U/l (0-40); AST/SGOT 26 U/l (0-37); Albumin 3.1 gm/dL (3.2-5.2); Albumin/Globulin Ratio 1.1 (1.0-2.3); Alkaline Phosphatase 70 U/L (39-117); Bilirubin,Direct 0.2 mg/dL (0.0-0.3); Bilirubin,Total 0.8 mg/dL (0.0-1.0); Blood Urea Nitrogen 12 mg/dl (8-23); Calcium 8.7 mg/dl (8.6-10.4); Carbon Dioxide 22 mmol/L (22-30); Chloride 98 mmol/L (96-108); Globulin 2.8 gm/dL (2.2-3.7); Glomerular Filtration Rate 83; Glucose 115 mg/dL (70-105); Lactate Dehydrogenase 184 U/L (94-250); Phosphorous 3.3 mg/dL (2.7-4.5); Triglycerides 108 mg/dl (<150)
[2019-07-11] MEDS: PANTOPRAZOLE 40 MG VIAL IV SCH ×2 (07:41→16:57)
[2019-07-11] MEDS: LEVOFLOXACIN 750 MG/150 ML BAG IV SCH (11:01)
[2019-07-11] MEDS: LOSARTAN 50 MG TABLET PO SCH (11:09)
[2019-07-11] MEDS: FELODIPINE XR 5 MG TABLET PO SCH (11:09)
[2019-07-11] MEDS ORDERED: DICYCLOMINE 20 MG TABLET PO SCH (13:00)
--- NOTE | 2019-07-11 13:35 | General Surgery Progress Note ---
Subjective Patient reports: feels better, pain is less, tolerating liquids well, flatus, afebrile Narrative: Note initiated : 07/11/19 at 1:33 pm Service Date, if different from initiated Date: [] Patient: Tarun Alvarez 74 y/o M admitted on 07/06/19 for Sigmoid Colectomy. Chief Complaint: [Patient continues to feel better. His pain is well controlled. He denies shortness of breath, chest discomfort. He has passed flatus multiple times. He is tolerating some clear liquids without difficulty. White blood count 11, hemoglobin 9.6, hematocrit 29.7, potassium 4, magnesium 1.5.] Objective Temp Pulse Resp BP Pulse Ox 97.2 F 86 24 H 154/77 96 07/11/19 08:00 07/11/19 08:00 07/11/19 08:00 07/11/19 08:00 07/11/19 08:00 - Additional Data Intake & Output - Last 24 hours: Intake & Output 07/09/19 07/10/19 07/11/19 07/12/19 05:59 05:59 05:59 05:59 Intake Total 3350 3300 1413 737 Output Total 2755 2500 1955 350 Balance 595 800 -542 387 Weight 227 lb 229 lb 8 oz 225 lb - General physical appearance well developed, well nourished, no distress - Eyes PERRL, normal ocular movement - ENT normal pinna, normal nares, normal mucosa, no hearing loss, no congestion - Neck no masses, no bruits, trachea midline, no lymphadenopathy, no venous distension - Respiratory normal expansion, normal respiratory effort, clear to auscultation - Cardiovascular Cardiovascular exam: Present: normal rate and rhythm, bradycardia (thought she is postop surgery), RRR, +S1, +S2. Absent: JVD, tachycardia - Abdomen tender (. Mild incisional tenderness), bowel sounds (present), surgical scars (none), masses (none) - Integumentary no rash, no growths, no abnormal pigmentation - Neurologic normal coordination, normal sensation - Musculoskeletal normal gait, normal posture - Psychiatric oriented to time, oriented to person, oriented to place, speech is normal, memory intact - Labs 07/11/19 05:21 07/11/19 05:21 Diabetes panel 07/11/19 Range/Units 05:21 Sodium 133 (133-145) mmol/L Potassium 3.4 (3.3-5.1) mmol/L Chloride 98 (96-108) mmol/L Carbon Dioxide 22 (22-30) mmol/L BUN 12 (8-23) mg/dl Creatinine 0.9 (0.7-1.2) mg/dl Glucose 115 H (70-105) mg/dL Calcium 8.7 (8.6-10.4) mg/dl AST 26 (0-37) U/l ALT 26 (0-40) U/l Alkaline Phosphatase 70 (39-117) U/L Total Protein 5.9 (5.9-8.4) gm/dL Albumin 3.1 L (3.2-5.2) gm/dL Triglycerides 108 (<150) mg/dl Calcium panel 07/11/19 Range/Units 05:21 Calcium 8.7 (8.6-10.4) mg/dl Phosphorus 3.3 (2.7-4.5) mg/dL Albumin 3.1 L (3.2-5.2) gm/dL Pituitary panel 07/11/19 Range/Units 05:21 Sodium 133 (133-145) mmol/L Potassium 3.4 (3.3-5.1) mmol/L Chloride 98 (96-108) mmol/L Carbon Dioxide 22 (22-30) mmol/L BUN 12 (8-23) mg/dl Creatinine 0.9 (0.7-1.2) mg/dl Glucose 115 H (70-105) mg/dL Calcium 8.7 (8.6-10.4) mg/dl Adrenal panel 07/11/19 Range/Units 05:21 Sodium 133 (133-145) mmol/L Potassium 3.4 (3.3-5.1) mmol/L Chloride 98 (96-108) mmol/L Carbon Dioxide 22 (22-30) mmol/L BUN 12 (8-23) mg/dl Creatinine 0.9 (0.7-1.2) mg/dl Glucose 115 H (70-105) mg/dL Calcium 8.7 (8.6-10.4) mg/dl Total Bilirubin 0.8 (0.0-1.0) mg/dL AST 26 (0-37) U/l ALT 26 (0-40) U/l Alkaline Phosphatase 70 (39-117) U/L Total Protein 5.9 (5.9-8.4) gm/dL Albumin 3.1 L (3.2-5.2) gm/dL Assessment and Plan (1) Neoplasm of sigmoid colon Status: Resolved Assessment and plan: Clinically stable. Saline lock IV. Replace magnesium. Milk of magnesia 2 doses Current Visit: Yes (2) Hematuria Status: Resolved Assessment and plan: Lamb catheter is discontinued Current Visit: Yes (3) Generalized anxiety disorder Status: Acute Assessment and plan: And diazepam 5 mg IV every 8 hours when necessary Discontinue , lorazepam Current Visit: Yes (4) Sleep apnea Status: Chronic Assessment and plan: Will use supplemental oxygen at bedtime as needed Current Visit: No (5) Type 2 diabetes mellitus without complication Problem details: 06/14/2008 Status: Chronic Assessment and plan: Start Accu-Cheks with Humalog coverage Current Visit: No (6) BPH (benign prostatic hyperplasia) Status: Chronic Current Visit: No - Time Spent With Patient Total time spent is greater than 50% in coordination of care (as documented) at patient's floor/unit and/or counseling patient:
[2019-07-11] MEDS ORDERED: MAGNESIUM SULFATE 4 GM/100 ML BAG IV ONE (13:45)
--- NOTE | 2019-07-11 14:12 | General Surgery Progress Note ---
Subjective Patient reports: feels better ( is), still having pain, pain is less, flatus, no bowel movement, afebrile Narrative: Note initiated : 07/11/19 at 2:10 pm Service Date, if different from initiated Date: [] Patient: Tarun Alvarez 74 y/o M admitted on 07/06/19 for Sigmoid Colectomy. Chief Complaint: [patient continues to do well. He is still passing gas but has not had a bowel movement.. He denies nausea. He's] Objective Temp Pulse Resp BP Pulse Ox 98.4 F 99 H 24 H 172/87 97 07/11/19 12:00 07/11/19 12:00 07/11/19 12:00 07/11/19 12:00 07/11/19 12:00 - Additional Data Intake & Output - Last 24 hours: Intake & Output 07/09/19 07/10/19 07/11/19 07/12/19 05:59 05:59 05:59 05:59 Intake Total 3350 3300 1413 737 Output Total 2755 2500 1955 350 Balance 595 800 -542 387 Weight 227 lb 229 lb 8 oz 225 lb 225 lb - Labs 07/11/19 05:21 07/11/19 05:21 Diabetes panel 07/11/19 Range/Units 05:21 Sodium 133 (133-145) mmol/L Potassium 3.4 (3.3-5.1) mmol/L Chloride 98 (96-108) mmol/L Carbon Dioxide 22 (22-30) mmol/L BUN 12 (8-23) mg/dl Creatinine 0.9 (0.7-1.2) mg/dl Glucose 115 H (70-105) mg/dL Calcium 8.7 (8.6-10.4) mg/dl AST 26 (0-37) U/l ALT 26 (0-40) U/l Alkaline Phosphatase 70 (39-117) U/L Total Protein 5.9 (5.9-8.4) gm/dL Albumin 3.1 L (3.2-5.2) gm/dL Triglycerides 108 (<150) mg/dl Calcium panel 07/11/19 Range/Units 05:21 Calcium 8.7 (8.6-10.4) mg/dl Phosphorus 3.3 (2.7-4.5) mg/dL Albumin 3.1 L (3.2-5.2) gm/dL Pituitary panel 07/11/19 Range/Units 05:21 Sodium 133 (133-145) mmol/L Potassium 3.4 (3.3-5.1) mmol/L Chloride 98 (96-108) mmol/L Carbon Dioxide 22 (22-30) mmol/L BUN 12 (8-23) mg/dl Creatinine 0.9 (0.7-1.2) mg/dl Glucose 115 H (70-105) mg/dL Calcium 8.7 (8.6-10.4) mg/dl Adrenal panel 07/11/19 Range/Units 05:21 Sodium 133 (133-145) mmol/L Potassium 3.4 (3.3-5.1) mmol/L Chloride 98 (96-108) mmol/L Carbon Dioxide 22 (22-30) mmol/L BUN 12 (8-23) mg/dl Creatinine 0.9 (0.7-1.2) mg/dl Glucose 115 H (70-105) mg/dL Calcium 8.7 (8.6-10.4) mg/dl Total Bilirubin 0.8 (0.0-1.0) mg/dL AST 26 (0-37) U/l ALT 26 (0-40) U/l Alkaline Phosphatase 70 (39-117) U/L Total Protein 5.9 (5.9-8.4) gm/dL Albumin 3.1 L (3.2-5.2) gm/dL Assessment and Plan (1) Neoplasm of sigmoid colon Status: Resolved Assessment and plan: Clinically stable. Saline lock IV. Replace magnesium. Milk of magnesia 2 doses Current Visit: Yes (2) Hematuria Status: Resolved Assessment and plan: Lamb catheter is discontinued Current Visit: Yes (3) Generalized anxiety disorder Status: Acute Assessment and plan: And diazepam 5 mg IV every 8 hours when necessary Discontinue , lorazepam Current Visit: Yes (4) Sleep apnea Status: Chronic Assessment and plan: Will use supplemental oxygen at bedtime as needed Current Visit: No (5) Type 2 diabetes mellitus without complication Problem details: 06/14/2008 Status: Chronic Assessment and plan: Start Accu-Cheks with Humalog coverage Current Visit: No (6) BPH (benign prostatic hyperplasia) Status: Chronic Current Visit: No - Time Spent With Patient Total time spent is greater than 50% in coordination of care (as documented) at patient's floor/unit and/or counseling patient:
[2019-07-11] MEDS: MAGNESIUM HYDROXIDE 30 ML ORAL.SUSP PO SCH ×2 (14:16→17:37)
[2019-07-11] MEDS: POTASSIUM CHLORIDE 20 MEQ TABLET PO SCH (17:37)
[2019-07-11] MEDS: HYDROmorphone* 2 MG/ML VIAL IV PRN ×2 (17:54→20:47)
[2019-07-11] MEDS ORDERED: TAMSULOSIN 0.4 MG CAPSULE PO SCH (21:00)
[2019-07-11] MEDS: SIMETHICONE 80 MG TAB.CHEW CHEWED SCH ×2 (21:56→23:49)
[2019-07-12] MEDS: SIMETHICONE 80 MG TAB.CHEW CHEWED SCH (04:19)
[2019-07-12] MEDS: 0.9 % SODIUM CHLORIDE 10 ML SYRINGE IV SCH ×4 (05:43→22:24)
[2019-07-12] MEDS: METOCLOPRAMIDE 10 MG/2 ML VIAL IV SCH ×3 (05:45→19:03)
[2019-07-12] MEDS: INSULIN LISPRO 1 UNIT/0.01 ML UNIT SQ SCH ×3 (05:47→19:02)
[2019-07-12] MEDS ORDERED: BISACODYL 10 MG SUPP.RECT PR ONE (06:38)
[2019-07-12] MEDS: PANTOPRAZOLE 40 MG VIAL IV SCH ×2 (06:44→18:53)
[2019-07-12] MEDS: BISACODYL 10 MG SUPP.RECT PR SCH ×2 (06:44→12:17)
--- NOTE | 2019-07-12 07:27 | XRay Report ---
CLINICAL INFORMATION: Postsurgical follow-up. History of partial colectomy for treatment of sigmoid colon malignancy TECHNIQUE: AP supine and upright abdomen COMPARISON: Preoperative CT scan dated 06/29/2019 FINDINGS: There are skin angelique in a vertical pelvic incision. There is a surgical drain in the pelvis. Upright examination demonstrates postsurgical pneumoperitoneum. There is gas throughout small and large bowel. Appearance is most consistent with postoperative ileus. There is no biliary or portal venous gas. There is no pneumatosis. IMPRESSION: 1. Status post sigmoid colectomy 2. Findings consistent with postoperative ileus Interpreted and Authenticated by: Florin Moreno 07/12/19
[2019-07-12] MEDS ORDERED: SIMETHICONE 80 MG TAB.CHEW CHEWED ONE (08:00)
[2019-07-12] MEDS: LOSARTAN 50 MG TABLET PO SCH (08:47)
[2019-07-12] MEDS: LEVOFLOXACIN 750 MG/150 ML BAG IV SCH (08:47)
[2019-07-12] MEDS: POTASSIUM CHLORIDE 20 MEQ TABLET PO SCH ×2 (08:47→18:52)
[2019-07-12] MEDS: FELODIPINE XR 5 MG TABLET PO SCH (08:48)
[2019-07-12] MEDS ORDERED: FINASTERIDE 5 MG TABLET PO SCH (09:00)
[2019-07-12] MEDS: LACTATED RINGERS 1,000 ML IV SCH ×2 (10:01→18:46)
[2019-07-12 11:13] LABS: ALT/SGPT 34 U/l (0-40); AST/SGOT 27 U/l (0-37); Albumin 3.3 gm/dL (3.2-5.2); Albumin/Globulin Ratio 1.3 (1.0-2.3); Alkaline Phosphatase 76 U/L (39-117); Bilirubin,Direct 0.3 mg/dL (0.0-0.3); Bilirubin,Total 0.8 mg/dL (0.0-1.0); Blood Urea Nitrogen 16 mg/dl (8-23); Calcium 8.7 mg/dl (8.6-10.4); Carbon Dioxide 22 mmol/L (22-30); Chloride 98 mmol/L (96-108); Globulin 2.5 gm/dL (2.2-3.7); Glomerular Filtration Rate 73; Glucose 151 mg/dL (70-105); Lactate Dehydrogenase 193 U/L (94-250); Phosphorous 3.3 mg/dL (2.7-4.5); Triglycerides 94 mg/dl (<150); Uric Acid 5.1 mg/dL (2.5-8.0)
[2019-07-12] MEDS: HYDROmorphone* 2 MG/ML VIAL IV PRN ×2 (12:16→18:18)
[2019-07-12 12:35] LABS: Basophils # (Auto) 0.03 K/mcL (0.00-0.30); Basophils % (Auto) 0.2 % (0.0-2.0); Eosinophils # (Auto) 0 K/mcL (0.00-0.70); Eosinophils % (Auto) 0 % (0.0-7.0); Granulocytes % (Auto) 88.3 % (38.0-78.0); Hematocrit 28.4 % (40.1-51.0); Hemoglobin 9.1 g/dL (13.7-17.5); Lymphocytes # (Auto) 0.72 K/mcL (1.50-4.80); Mean Cell Volume 73.2 fL (80.0-100.0); Mean Platelet Volume 9.5 fL (7.4-10.4); Monocytes # (Auto) 1.36 K/mcL (0.10-0.90); Monocytes % (Auto) 7.5 % (1.0-12.0); Platelet Count 346 K/mcL (140-440); RBC 3.88 M/mcL (4.63-6.08); Red Cell Distribution Width 18.6 % (11.5-14.5); WBC 18.1 K/mcL (4.50-11.00)
--- NOTE | 2019-07-12 12:54 | General Surgery Progress Note ---
Subjective Patient reports: pain is less, flatus, bowel movement, afebrile Narrative: Note initiated : 07/12/19 at 12:51 pm Service Date, if different from initiated Date: [] Patient: Tarun Alvarez 74 y/o M admitted on 07/06/19 for Sigmoid Colectomy. Chief Complaint: [Patient had severe abdominal pain during the night. He had gaseous distention and was given Mylicon which he states that relieved his discomfort. He felt better when seen earlier today, but he started having bowel movements and it was noted that the drainage in the RAPHAEL drain changed and have the odor of stool. Findings suggest that he has an anastomotic leak. Patient is informed of this and gives consent for exploratory laparotomy with washout and colostomy. He is informed that this will be temporary and that I will consider re-anastomosis in about 60 days. White blood count is 18,000, hemoglobin is 9.1.] Objective Temp Pulse Resp BP Pulse Ox 98.9 F 90 24 H 143/76 92 07/12/19 07:43 07/12/19 07:43 07/12/19 07:43 07/12/19 07:43 07/12/19 07:43 - Additional Data Intake & Output - Last 24 hours: Intake & Output 07/10/19 07/11/19 07/12/19 07/13/19 05:59 05:59 05:59 05:59 Intake Total 3300 1413 3167 150 Output Total 2500 1955 2277 200 Balance 800 -542 890 -50 Weight 229 lb 8 oz 225 lb 225 lb - General physical appearance well developed, well nourished, no distress - Eyes PERRL, normal ocular movement - ENT normal pinna, normal nares, normal mucosa, no hearing loss, no congestion - Neck no masses, no bruits, trachea midline, no lymphadenopathy, no venous distension - Respiratory normal expansion, normal respiratory effort, clear to auscultation - Cardiovascular Cardiovascular exam: Present: normal rate and rhythm, RRR, +S1, +S2. Absent: JVD, tachycardia - Abdomen tender (incisional tenderness), distended (moderate distention but soft) - Rectum normal sphincter tone, no hemorrhoids, no tenderness, no masses, no bleeding, other (rectal exam done earlier which was totally benign) - Neurologic normal coordination, normal sensation - Musculoskeletal normal gait, normal posture - Psychiatric oriented to time, oriented to person, oriented to place, speech is normal, memory intact - Labs 07/12/19 06:24 07/12/19 06:24 Diabetes panel 07/12/19 Range/Units 06:24 Sodium 135 (133-145) mmol/L Potassium 3.7 (3.3-5.1) mmol/L Chloride 98 (96-108) mmol/L Carbon Dioxide 22 (22-30) mmol/L BUN 16 (8-23) mg/dl Creatinine 1.0 (0.7-1.2) mg/dl Glucose 151 H (70-105) mg/dL Calcium 8.7 (8.6-10.4) mg/dl AST 27 (0-37) U/l ALT 34 (0-40) U/l Alkaline Phosphatase 76 (39-117) U/L Total Protein 5.8 L (5.9-8.4) gm/dL Albumin 3.3 (3.2-5.2) gm/dL Triglycerides 94 (<150) mg/dl Calcium panel 07/12/19 Range/Units 06:24 Calcium 8.7 (8.6-10.4) mg/dl Phosphorus 3.3 (2.7-4.5) mg/dL Albumin 3.3 (3.2-5.2) gm/dL Pituitary panel 07/12/19 Range/Units 06:24 Sodium 135 (133-145) mmol/L Potassium 3.7 (3.3-5.1) mmol/L Chloride 98 (96-108) mmol/L Carbon Dioxide 22 (22-30) mmol/L BUN 16 (8-23) mg/dl Creatinine 1.0 (0.7-1.2) mg/dl Glucose 151 H (70-105) mg/dL Calcium 8.7 (8.6-10.4) mg/dl Adrenal panel 07/12/19 Range/Units 06:24 Sodium 135 (133-145) mmol/L Potassium 3.7 (3.3-5.1) mmol/L Chloride 98 (96-108) mmol/L Carbon Dioxide 22 (22-30) mmol/L BUN 16 (8-23) mg/dl Creatinine 1.0 (0.7-1.2) mg/dl Glucose 151 H (70-105) mg/dL Calcium 8.7 (8.6-10.4) mg/dl Total Bilirubin 0.8 (0.0-1.0) mg/dL AST 27 (0-37) U/l ALT 34 (0-40) U/l Alkaline Phosphatase 76 (39-117) U/L Total Protein 5.8 L (5.9-8.4) gm/dL Albumin 3.3 (3.2-5.2) gm/dL Assessment and Plan (1) Anastomotic leak of intestine Status: Acute Assessment and plan: Patient is on adequate antibiotic coverage. He is informed of the need to take down his anastomosis and temporary colostomy with plans for re-anastomosis and about 2 months. He agrees with this. Current Visit: Yes (2) Type 2 diabetes mellitus without complication Problem details: 06/14/2008 Status: Chronic Current Visit: No (3) Neoplasm of sigmoid colon Status: Resolved Current Visit: Yes (4) Hematuria Status: Resolved Current Visit: Yes (5) Generalized anxiety disorder Status: Acute Current Visit: Yes (6) Sleep apnea Status: Chronic Current Visit: No (7) BPH (benign prostatic hyperplasia) Status: Chronic Current Visit: No - Time Spent With Patient Total time spent is greater than 50% in coordination of care (as documented) at patient's floor/unit and/or counseling patient:
[2019-07-12] MEDS ORDERED: 0.9 % SODIUM CHLORIDE 250 ML IV SCH ×2 (14:00→17:55)
[2019-07-12] MEDS ORDERED: DEXAMETHASONE 10 MG/ML VIAL IV ONE (14:40)
[2019-07-12] MEDS ORDERED: PHENYLEPHRINE 10 MG/ML VIAL IV ONE (14:40)
[2019-07-12] MEDS ORDERED: ONDANSETRON 4 MG/2 ML VIAL IV ONE (14:40)
[2019-07-12] MEDS ORDERED: ePHEDrine 50 MG/ML AMPUL IV ONE (14:40)
[2019-07-12] MEDS ORDERED: PROPOFOL 200 MG/20 ML VIAL IV ONE (14:40)
[2019-07-12] MEDS ORDERED: SUGAMMADEX SODIUM 200 MG/2 ML VIAL IV ONE (14:40)
[2019-07-12] MEDS ORDERED: KETAMINE 100 MG/ML ML IV ONE (14:40)
[2019-07-12] MEDS ORDERED: ROPIVACAINE HCL/PF 20 ML VIAL IJ ONE (14:40)
[2019-07-12] MEDS ORDERED: ROCURONIUM 10 MG/ML ML IV ONE (14:40)
[2019-07-12] MEDS ORDERED: SUCCINYLCHOLINE 20 MG/ML ML IV ONE (14:40)
[2019-07-12] MEDS ORDERED: LIDOCAINE HCL/PF 100 MG/5 ML SYRINGE IV ONE (14:40)
[2019-07-12] MEDS ORDERED: PROMETHAZINE 25 MG/ML VIAL IV PRN ×3 (16:21→17:55)
[2019-07-12] MEDS ORDERED: fentaNYL 100 MCG/2 ML VIAL IV PRN ×2 (16:21→17:55)
[2019-07-12] MEDS ORDERED: NALOXONE HCL 0.4 MG/ML VIAL IV PRN ×2 (16:21→17:55)
[2019-07-12] MEDS ORDERED: diphenhydrAMINE 50 MG/ML VIAL IV PRN ×2 (16:21→17:55)
[2019-07-12] MEDS ORDERED: LACTATED RINGERS 250 ML IV PRN (16:21)
[2019-07-12] MEDS ORDERED: ONDANSETRON 4 MG/2 ML VIAL IV PRN ×3 (16:21→17:55)
[2019-07-12] MEDS ORDERED: ACETAMINOPHEN 1,000 MG/100 ML BOTTLE IV ONE (16:21)
[2019-07-12] MEDS ORDERED: IPRATROPIUM/ALBUTEROL 3 ML AMPUL.NEB NEB PRN (16:21)
[2019-07-12] MEDS ORDERED: PROMETHAZINE 25 MG/ML VIAL IM PRN ×2 (16:21→17:55)
[2019-07-12] MEDS ORDERED: LACTATED RINGERS 1,000 ML IV SCH ×2 (16:30→17:55)
[2019-07-12] MEDS ORDERED: BACITRACIN 50,000 UNIT VIAL IR ONE (16:38)
--- NOTE | 2019-07-12 17:32 | Brief Operative Note ---
Date of procedure: 07/12/19 Pre-op diagnosis: COLORECTAL ANASTOMOTIC LEAK Post-op diagnosis: other (COLORECTAL ANASTOMOTIC LEAK) Procedure: LAPAROTOMY WITH TAKE DOWN OF ANASTOMOSIS AND COLOSTOMY Grafts/Implants: No (NADYA DRAIN X2 IN PELVIS) Anesthesia: GETA Findings: LEAK OF ANTERIOR ASPECT OF ANASTOMOSIS WITH LEAK CONFINED TO PELVIS Complications: none Surgeon: Gladys Hewitt Estimated blood loss (cc): 50 Specimens Removed/Pathology: other (END OF ANASTOMOSIS) Condition: stable Disposition: PACU
[2019-07-12] MEDS ORDERED: BENZOCAINE/MENTHOL 1 LOZENGE PO PRN ×2 (17:41→17:55)
[2019-07-12] MEDS: MEPERIDINE 25 MG/ML SYRINGE IV PRN ×2 (17:55→18:05)
[2019-07-12] MEDS ORDERED: MEPERIDINE 25 MG/ML SYRINGE IV PRN (17:55)
[2019-07-13] MEDS: LACTATED RINGERS 1,000 ML IV SCH ×4 (00:27→21:34)
[2019-07-13] MEDS: METOCLOPRAMIDE 10 MG/2 ML VIAL IV SCH ×5 (00:29→23:18)
[2019-07-13] MEDS: INSULIN LISPRO 1 UNIT/0.01 ML UNIT SQ SCH ×5 (00:34→23:20)
[2019-07-13] MEDS: hydrALAZINE 20 MG/ML VIAL IV PRN ×4 (04:35→23:18)
[2019-07-13] MEDS: HYDROmorphone* 2 MG/ML VIAL IV PRN ×3 (04:36→19:22)
[2019-07-13] MEDS: 0.9 % SODIUM CHLORIDE 10 ML SYRINGE IV SCH ×4 (05:51→21:39)
[2019-07-13] MEDS: PANTOPRAZOLE 40 MG VIAL IV SCH ×2 (07:11→17:46)
[2019-07-13 08:14] LABS: ALT/SGPT 24 U/l (0-40); AST/SGOT 18 U/l (0-37); Albumin 3.1 gm/dL (3.2-5.2); Albumin/Globulin Ratio 1.1 (1.0-2.3); Alkaline Phosphatase 71 U/L (39-117); Bilirubin,Direct < 0.2 mg/dL (0.0-0.3); Bilirubin,Total 0.6 mg/dL (0.0-1.0); Blood Urea Nitrogen 15 mg/dl (8-23); Calcium 8.6 mg/dl (8.6-10.4); Carbon Dioxide 22 mmol/L (22-30); Chloride 97 mmol/L (96-108); Globulin 2.8 gm/dL (2.2-3.7); Glomerular Filtration Rate 83; Glucose 138 mg/dL (70-105); Lactate Dehydrogenase 199 U/L (94-250); Phosphorous 3.1 mg/dL (2.7-4.5); Triglycerides 105 mg/dl (<150); Uric Acid 4.2 mg/dL (2.5-8.0)
[2019-07-13] MEDS: LEVOFLOXACIN 750 MG/150 ML BAG IV SCH (08:54)
[2019-07-13 11:19] LABS: Basophils # (Auto) 0.02 K/mcL (0.00-0.30); Basophils % (Auto) 0.1 % (0.0-2.0); Eosinophils # (Auto) 0 K/mcL (0.00-0.70); Eosinophils % (Auto) 0 % (0.0-7.0); Granulocytes % (Auto) 84.4 % (38.0-78.0); Hematocrit 25.5 % (40.1-51.0); Hemoglobin 8.3 g/dL (13.7-17.5); Lymphocytes # (Auto) 0.88 K/mcL (1.50-4.80); Lymphocytes % (Auto) 5.9 % (15.5-49.0); Mean Cell Volume 73.7 fL (80.0-100.0); Mean Corpuscular HGB Conc 32.5 g/dL (31.0-36.0); Mean Platelet Volume 9.5 fL (7.4-10.4); Monocytes # (Auto) 1.43 K/mcL (0.10-0.90); Monocytes % (Auto) 9.6 % (1.0-12.0); Platelet Count 306 K/mcL (140-440); RBC 3.46 M/mcL (4.63-6.08); Red Cell Distribution Width 18.6 % (11.5-14.5); WBC 14.9 K/mcL (4.50-11.00)
--- NOTE | 2019-07-13 16:54 | General Surgery Progress Note ---
Subjective Patient reports: feels better, still having pain, pain is less, no flatus, no bowel movement, afebrile Narrative: Note initiated : 07/13/19 at 4:52 pm Service Date, if different from initiated Date: [] Patient: Tarun Alvarez 74 y/o M admitted on 07/06/19 for Sigmoid Colectomy. Chief Complaint: [Patient is clinically stable. He states that his pain is improved. He denies nausea. He has been afebrile. White blood count 14.9, hemoglobin 8.3, hematocrit 25.3, potassium 4.1, BUN 15, creatinine 0.9.] Objective Temp Pulse Resp BP Pulse Ox 97.8 F 89 18 146/76 93 07/13/19 12:40 07/13/19 04:22 07/13/19 12:40 07/13/19 12:40 07/13/19 12:40 - Additional Data Intake & Output - Last 24 hours: Intake & Output 07/11/19 07/12/19 07/13/19 07/14/19 05:59 05:59 05:59 05:59 Intake Total 1413 3167 3132 2043 Output Total 1955 2277 1895 Balance -243 595 0179 2043 Weight 225 lb 225 lb 231 lb 8 oz 231 lb 8 oz - General physical appearance moderate distress, moderate pain - Eyes PERRL, normal ocular movement - ENT normal pinna, normal nares, normal mucosa, no congestion, decreased hearing - Neck no masses, no bruits, trachea midline, no lymphadenopathy, no venous distension - Respiratory normal expansion, normal respiratory effort, clear to auscultation - Cardiovascular Cardiovascular exam: Present: normal rate and rhythm, RRR, +S1, +S2. Absent: JVD, tachycardia - Abdomen tender, surgical scars (incision looks good; stoma is healthy) - Rectum normal sphincter tone, no hemorrhoids, no tenderness, no masses, no bleeding - Integumentary no rash, no growths, no abnormal pigmentation - Neurologic normal coordination, normal sensation - Musculoskeletal normal gait, normal posture - Psychiatric oriented to time, oriented to person, oriented to place, speech is normal, memory intact - Labs 07/13/19 08:53 07/13/19 06:29 Diabetes panel 07/13/19 Range/Units 06:29 Sodium 132 L (133-145) mmol/L Potassium 4.1 (3.3-5.1) mmol/L Chloride 97 (96-108) mmol/L Carbon Dioxide 22 (22-30) mmol/L BUN 15 (8-23) mg/dl Creatinine 0.9 (0.7-1.2) mg/dl Glucose 138 H (70-105) mg/dL Calcium 8.6 (8.6-10.4) mg/dl AST 18 (0-37) U/l ALT 24 (0-40) U/l Alkaline Phosphatase 71 (39-117) U/L Total Protein 5.9 (5.9-8.4) gm/dL Albumin 3.1 L (3.2-5.2) gm/dL Triglycerides 105 (<150) mg/dl Calcium panel 07/13/19 Range/Units 06:29 Calcium 8.6 (8.6-10.4) mg/dl Phosphorus 3.1 (2.7-4.5) mg/dL Albumin 3.1 L (3.2-5.2) gm/dL Pituitary panel 07/13/19 Range/Units 06:29 Sodium 132 L (133-145) mmol/L Potassium 4.1 (3.3-5.1) mmol/L Chloride 97 (96-108) mmol/L Carbon Dioxide 22 (22-30) mmol/L BUN 15 (8-23) mg/dl Creatinine 0.9 (0.7-1.2) mg/dl Glucose 138 H (70-105) mg/dL Calcium 8.6 (8.6-10.4) mg/dl Adrenal panel 07/13/19 Range/Units 06:29 Sodium 132 L (133-145) mmol/L Potassium 4.1 (3.3-5.1) mmol/L Chloride 97 (96-108) mmol/L Carbon Dioxide 22 (22-30) mmol/L BUN 15 (8-23) mg/dl Creatinine 0.9 (0.7-1.2) mg/dl Glucose 138 H (70-105) mg/dL Calcium 8.6 (8.6-10.4) mg/dl Total Bilirubin 0.6 (0.0-1.0) mg/dL AST 18 (0-37) U/l ALT 24 (0-40) U/l Alkaline Phosphatase 71 (39-117) U/L Total Protein 5.9 (5.9-8.4) gm/dL Albumin 3.1 L (3.2-5.2) gm/dL Assessment and Plan (1) Anastomotic leak of intestine Status: Acute Assessment and plan: Patient is doing well. Pain is adequately controlled. No purulent drainage noted Current Visit: Yes (2) Type 2 diabetes mellitus without complication Problem details: 06/14/2008 Status: Chronic Current Visit: No (3) Neoplasm of sigmoid colon Status: Resolved Current Visit: Yes (4) Hematuria Status: Resolved Current Visit: Yes (5) Generalized anxiety disorder Status: Acute Current Visit: Yes (6) Sleep apnea Status: Chronic Current Visit: No (7) BPH (benign prostatic hyperplasia) Status: Chronic Current Visit: No - Time Spent With Patient Total time spent is greater than 50% in coordination of care (as documented) at patient's floor/unit and/or counseling patient:
[2019-07-13] MEDS ORDERED: 0.9 % SODIUM CHLORIDE 250 ML IV SCH (17:00)
[2019-07-14] MEDS: HYDROmorphone* 2 MG/ML VIAL IV PRN ×3 (03:47→19:38)
[2019-07-14] MEDS: LACTATED RINGERS 1,000 ML IV SCH ×3 (03:48→19:37)
[2019-07-14] MEDS: hydrALAZINE 20 MG/ML VIAL IV PRN ×5 (04:11→23:36)
[2019-07-14] MEDS: METOCLOPRAMIDE 10 MG/2 ML VIAL IV SCH ×4 (05:20→23:29)
[2019-07-14] MEDS: INSULIN LISPRO 1 UNIT/0.01 ML UNIT SQ SCH ×3 (05:21→17:42)
[2019-07-14] MEDS: 0.9 % SODIUM CHLORIDE 10 ML SYRINGE IV SCH ×3 (05:21→23:07)
[2019-07-14] MEDS: PANTOPRAZOLE 40 MG VIAL IV SCH ×2 (06:49→17:39)
[2019-07-14 07:21] LABS: Basophils # (Auto) 0.02 K/mcL (0.00-0.30); Basophils % (Auto) 0.2 % (0.0-2.0); Eosinophils # (Auto) 0.03 K/mcL (0.00-0.70); Eosinophils % (Auto) 0.2 % (0.0-7.0); Granulocytes % (Auto) 75.6 % (38.0-78.0); Hematocrit 28.1 % (40.1-51.0); Hemoglobin 8.8 g/dL (13.7-17.5); Mean Cell Volume 73.9 fL (80.0-100.0); Mean Corpuscular HGB Conc 31.3 g/dL (31.0-36.0); Mean Platelet Volume 9.5 fL (7.4-10.4); Monocytes # (Auto) 1.43 K/mcL (0.10-0.90); Platelet Count 318 K/mcL (140-440)
[2019-07-14 08:01] LABS: Bilirubin,Direct < 0.2 mg/dL (0.0-0.3); Chloride 98 mmol/L (96-108)
[2019-07-14 08:02] LABS: ALT/SGPT 21 U/l (0-40); AST/SGOT 27 U/l (0-37); Albumin 2.8 gm/dL (3.2-5.2); Alkaline Phosphatase 68 U/L (39-117); Bilirubin,Total 0.4 mg/dL (0.0-1.0); Blood Urea Nitrogen 15 mg/dl (8-23); Calcium 8.7 mg/dl (8.6-10.4); Carbon Dioxide 21 mmol/L (22-30); Globulin 2.7 gm/dL (2.2-3.7); Glomerular Filtration Rate 83; Glucose 96 mg/dL (70-105); Lactate Dehydrogenase 401 U/L (94-250); Phosphorous 3.4 mg/dL (2.7-4.5); Triglycerides 105 mg/dl (<150); Uric Acid 4.3 mg/dL (2.5-8.0)
[2019-07-14] MEDS: LEVOFLOXACIN 750 MG/150 ML BAG IV SCH (08:53)
--- NOTE | 2019-07-14 12:39 | General Surgery Progress Note ---
Subjective Patient reports: feels better, still having pain, flatus, no bowel movement, afebrile Narrative: Note initiated : 07/14/19 at 12:37 pm Service Date, if different from initiated Date: [] Patient: Tarun Alvarez 74 y/o M admitted on 07/06/19 for Sigmoid Colectomy. Chief Complaint: [] Patient is going well. He is having a small amount of flatus through his stoma. His stoma is healthy. He has less abdominal distention. He has not passed stool so far. White blood count 13, hemoglobin 8.8, hematocrit 28.1 Objective Temp Pulse Resp BP Pulse Ox 97.7 F 77 19 153/77 94 07/14/19 08:00 07/14/19 08:00 07/14/19 08:00 07/14/19 08:00 07/14/19 08:00 - Additional Data Intake & Output - Last 24 hours: Intake & Output 07/12/19 07/13/19 07/14/19 07/15/19 05:59 05:59 05:59 05:59 Intake Total 3167 3132 3978 Output Total 2277 1895 1675 150 Balance 890 1237 2303 -150 Weight 225 lb 231 lb 8 oz 234 lb 1 oz - General physical appearance well developed, well nourished, no distress, moderate distress, moderate pain - Eyes PERRL, normal ocular movement - ENT normal pinna, normal nares, normal mucosa, no congestion, decreased hearing - Neck no masses, no bruits, trachea midline, no lymphadenopathy, no venous distension - Respiratory normal expansion, normal respiratory effort, clear to auscultation - Cardiovascular Cardiovascular exam: Present: normal rate and rhythm, RRR, +S1, +S2. Absent: JVD, tachycardia - Abdomen non tender, bowel sounds (present), surgical scars (stoma looks good with gas in the bag; decrease distention), masses (none) - Integumentary no rash, no growths, no abnormal pigmentation - Neurologic normal coordination, normal sensation - Labs 07/14/19 06:26 07/14/19 06:26 Diabetes panel 07/14/19 Range/Units 06:26 Sodium 131 L (133-145) mmol/L Potassium 4.0 (3.3-5.1) mmol/L Chloride 98 (96-108) mmol/L Carbon Dioxide 21 L (22-30) mmol/L BUN 15 (8-23) mg/dl Creatinine 0.9 (0.7-1.2) mg/dl Glucose 96 (70-105) mg/dL Calcium 8.7 (8.6-10.4) mg/dl AST 27 (0-37) U/l ALT 21 (0-40) U/l Alkaline Phosphatase 68 (39-117) U/L Total Protein 5.5 L (5.9-8.4) gm/dL Albumin 2.8 L (3.2-5.2) gm/dL Triglycerides 105 (<150) mg/dl Calcium panel 07/14/19 Range/Units 06:26 Calcium 8.7 (8.6-10.4) mg/dl Phosphorus 3.4 (2.7-4.5) mg/dL Albumin 2.8 L (3.2-5.2) gm/dL Pituitary panel 07/14/19 Range/Units 06:26 Sodium 131 L (133-145) mmol/L Potassium 4.0 (3.3-5.1) mmol/L Chloride 98 (96-108) mmol/L Carbon Dioxide 21 L (22-30) mmol/L BUN 15 (8-23) mg/dl Creatinine 0.9 (0.7-1.2) mg/dl Glucose 96 (70-105) mg/dL Calcium 8.7 (8.6-10.4) mg/dl Adrenal panel 07/14/19 Range/Units 06:26 Sodium 131 L (133-145) mmol/L Potassium 4.0 (3.3-5.1) mmol/L Chloride 98 (96-108) mmol/L Carbon Dioxide 21 L (22-30) mmol/L BUN 15 (8-23) mg/dl Creatinine 0.9 (0.7-1.2) mg/dl Glucose 96 (70-105) mg/dL Calcium 8.7 (8.6-10.4) mg/dl Total Bilirubin 0.4 (0.0-1.0) mg/dL AST 27 (0-37) U/l ALT 21 (0-40) U/l Alkaline Phosphatase 68 (39-117) U/L Total Protein 5.5 L (5.9-8.4) gm/dL Albumin 2.8 L (3.2-5.2) gm/dL Assessment and Plan (1) Anastomotic leak of intestine Status: Acute Assessment and plan: Patient is doing well. Pain is adequately controlled. Stoma is beginning to work Current Visit: Yes (2) Type 2 diabetes mellitus without complication Problem details: 06/14/2008 Status: Chronic Current Visit: No (3) Neoplasm of sigmoid colon Status: Resolved Current Visit: Yes (4) Hematuria Status: Resolved Current Visit: Yes (5) Generalized anxiety disorder Status: Acute Current Visit: Yes (6) Sleep apnea Status: Chronic Current Visit: No (7) BPH (benign prostatic hyperplasia) Status: Chronic Current Visit: No - Time Spent With Patient Total time spent is greater than 50% in coordination of care (as documented) at patient's floor/unit and/or counseling patient:
[2019-07-15] MEDS: LACTATED RINGERS 1,000 ML IV SCH ×5 (02:11→23:20)
[2019-07-15] MEDS: HYDROmorphone* 2 MG/ML VIAL IV PRN ×4 (02:15→22:13)
[2019-07-15] MEDS: INSULIN LISPRO 1 UNIT/0.01 ML UNIT SQ SCH ×5 (03:05→23:21)
[2019-07-15] MEDS: hydrALAZINE 20 MG/ML VIAL IV PRN ×3 (04:01→19:05)
[2019-07-15] MEDS: METOCLOPRAMIDE 10 MG/2 ML VIAL IV SCH ×4 (05:28→23:21)
[2019-07-15 06:47] LABS: Basophils # (Auto) 0.01 K/mcL (0.00-0.30); Basophils % (Auto) 0.1 % (0.0-2.0); Eosinophils # (Auto) 0.11 K/mcL (0.00-0.70); Eosinophils % (Auto) 1.1 % (0.0-7.0); Granulocytes % (Auto) 69.7 % (38.0-78.0); Hematocrit 27.1 % (40.1-51.0); Hemoglobin 8.6 g/dL (13.7-17.5); Lymphocytes # (Auto) 1.74 K/mcL (1.50-4.80); Lymphocytes % (Auto) 17.1 % (15.5-49.0); Mean Corpuscular HGB Conc 31.7 g/dL (31.0-36.0); Mean Platelet Volume 9.4 fL (7.4-10.4); Monocytes # (Auto) 1.22 K/mcL (0.10-0.90); Platelet Count 323 K/mcL (140-440); RBC 3.71 M/mcL (4.63-6.08); Red Cell Distribution Width 18.6 % (11.5-14.5); WBC 10.2 K/mcL (4.50-11.00)
[2019-07-15 07:08] LABS: ALT/SGPT 23 U/l (0-40); AST/SGOT 22 U/l (0-37); Albumin 2.5 gm/dL (3.2-5.2); Alkaline Phosphatase 64 U/L (39-117); Bilirubin,Direct < 0.2 mg/dL (0.0-0.3); Bilirubin,Total 0.4 mg/dL (0.0-1.0); Blood Urea Nitrogen 11 mg/dl (8-23); Calcium 8.4 mg/dl (8.6-10.4); Carbon Dioxide 21 mmol/L (22-30); Chloride 96 mmol/L (96-108); Globulin 2.5 gm/dL (2.2-3.7); Glomerular Filtration Rate 83; Glucose 87 mg/dL (70-105); Lactate Dehydrogenase 238 U/L (94-250); Phosphorous 3.6 mg/dL (2.7-4.5); Triglycerides 115 mg/dl (<150); Uric Acid 4.3 mg/dL (2.5-8.0)
[2019-07-15] MEDS: PANTOPRAZOLE 40 MG VIAL IV SCH ×2 (07:10→17:42)
[2019-07-15] MEDS: 0.9 % SODIUM CHLORIDE 10 ML SYRINGE IV SCH ×4 (07:10→22:10)
[2019-07-15] MEDS: LEVOFLOXACIN 750 MG/150 ML BAG IV SCH (09:21)
--- NOTE | 2019-07-15 13:08 | General Surgery Progress Note ---
Subjective Patient reports: feels better, pain is less, flatus, no bowel movement, afebrile Narrative: Note initiated : 07/15/19 at 1:05 pm Service Date, if different from initiated Date: [] Patient: Tarun Alvarez 74 y/o M admitted on 07/06/19 for Sigmoid Colectomy. Chief Complaint: [patient is doing well. He is moderate amount of flatus in his stomal appliance. He denies nausea. His abdomen is much softer and less distended. White blood count 10.2, hemoglobin 8.6, hematocrit 27.1, inpatient panel is normal. He is afebrile.] Objective Temp Pulse Resp BP Pulse Ox 98.3 F 71 17 178/84 93 07/15/19 12:00 07/15/19 12:00 07/15/19 12:00 07/15/19 12:00 07/15/19 12:00 - Additional Data Intake & Output - Last 24 hours: Intake & Output 07/13/19 07/14/19 07/15/19 07/16/19 05:59 05:59 05:59 05:59 Intake Total 3132 3978 3135 1150 Output Total 1895 1675 2785 1700 Balance 1237 2303 350 -550 Weight 231 lb 8 oz 234 lb 1 oz 236 lb - General physical appearance well developed, well nourished, no distress - Eyes PERRL, normal ocular movement - ENT normal pinna, normal nares, normal mucosa, no hearing loss, no congestion - Neck no masses, no bruits, trachea midline, no lymphadenopathy, no venous distension - Respiratory normal expansion, normal respiratory effort, clear to auscultation - Cardiovascular Cardiovascular exam: Present: normal rate and rhythm, RRR, +S1, +S2. Absent: JVD, tachycardia - Abdomen soft, tender, bowel sounds (good active bowel sounds), distended (, much less distended) - Integumentary no rash, no growths, no abnormal pigmentation - Neurologic normal coordination, normal sensation - Musculoskeletal normal gait, normal posture - Psychiatric oriented to time, oriented to person, oriented to place, speech is normal, memory intact - Labs 07/15/19 05:38 07/15/19 05:38 Diabetes panel 07/15/19 Range/Units 05:38 Sodium 130 L (133-145) mmol/L Potassium 3.4 (3.3-5.1) mmol/L Chloride 96 (96-108) mmol/L Carbon Dioxide 21 L (22-30) mmol/L BUN 11 (8-23) mg/dl Creatinine 0.9 (0.7-1.2) mg/dl Glucose 87 (70-105) mg/dL Calcium 8.4 L (8.6-10.4) mg/dl AST 22 (0-37) U/l ALT 23 (0-40) U/l Alkaline Phosphatase 64 (39-117) U/L Total Protein 5.0 L (5.9-8.4) gm/dL Albumin 2.5 L (3.2-5.2) gm/dL Triglycerides 115 (<150) mg/dl Calcium panel 07/15/19 Range/Units 05:38 Calcium 8.4 L (8.6-10.4) mg/dl Phosphorus 3.6 (2.7-4.5) mg/dL Albumin 2.5 L (3.2-5.2) gm/dL Pituitary panel 07/15/19 Range/Units 05:38 Sodium 130 L (133-145) mmol/L Potassium 3.4 (3.3-5.1) mmol/L Chloride 96 (96-108) mmol/L Carbon Dioxide 21 L (22-30) mmol/L BUN 11 (8-23) mg/dl Creatinine 0.9 (0.7-1.2) mg/dl Glucose 87 (70-105) mg/dL Calcium 8.4 L (8.6-10.4) mg/dl Adrenal panel 07/15/19 Range/Units 05:38 Sodium 130 L (133-145) mmol/L Potassium 3.4 (3.3-5.1) mmol/L Chloride 96 (96-108) mmol/L Carbon Dioxide 21 L (22-30) mmol/L BUN 11 (8-23) mg/dl Creatinine 0.9 (0.7-1.2) mg/dl Glucose 87 (70-105) mg/dL Calcium 8.4 L (8.6-10.4) mg/dl Total Bilirubin 0.4 (0.0-1.0) mg/dL AST 22 (0-37) U/l ALT 23 (0-40) U/l Alkaline Phosphatase 64 (39-117) U/L Total Protein 5.0 L (5.9-8.4) gm/dL Albumin 2.5 L (3.2-5.2) gm/dL Assessment and Plan (1) Anastomotic leak of intestine Status: Acute Assessment and plan: Patient is doing well. Pain is adequately controlled. Stoma is beginning to work Clear liquid diet Current Visit: Yes (2) Type 2 diabetes mellitus without complication Problem details: 06/14/2008 Status: Chronic Current Visit: No (3) Neoplasm of sigmoid colon Status: Resolved Current Visit: Yes (4) Hematuria Status: Resolved Current Visit: Yes (5) Generalized anxiety disorder Status: Acute Current Visit: Yes (6) Sleep apnea Status: Chronic Current Visit: No (7) BPH (benign prostatic hyperplasia) Status: Chronic Current Visit: No - Time Spent With Patient Total time spent is greater than 50% in coordination of care (as documented) at patient's floor/unit and/or counseling patient:
[2019-07-16] MEDS: LACTATED RINGERS 1,000 ML IV SCH ×5 (00:48→17:57)
[2019-07-16] MEDS: HYDROmorphone* 2 MG/ML VIAL IV PRN ×4 (00:48→20:27)
[2019-07-16] MEDS: hydrALAZINE 20 MG/ML VIAL IV PRN ×3 (04:26→20:55)
[2019-07-16] MEDS: 0.9 % SODIUM CHLORIDE 10 ML SYRINGE IV SCH ×3 (05:18→23:05)
[2019-07-16] MEDS: METOCLOPRAMIDE 10 MG/2 ML VIAL IV SCH ×4 (05:18→23:30)
[2019-07-16] MEDS: INSULIN LISPRO 1 UNIT/0.01 ML UNIT SQ SCH ×4 (05:22→20:20)
[2019-07-16 06:32] LABS: Basophils # (Auto) 0.03 K/mcL (0.00-0.30); Basophils % (Auto) 0.3 % (0.0-2.0); Eosinophils # (Auto) 0.14 K/mcL (0.00-0.70); Eosinophils % (Auto) 1.2 % (0.0-7.0); Granulocytes % (Auto) 74.5 % (38.0-78.0); Hemoglobin 9.5 g/dL (13.7-17.5); Lymphocytes # (Auto) 1.52 K/mcL (1.50-4.80); Lymphocytes % (Auto) 13.2 % (15.5-49.0); Mean Cell Volume 72.5 fL (80.0-100.0); Mean Corpuscular HGB Conc 31.7 g/dL (31.0-36.0); Mean Platelet Volume 9.3 fL (7.4-10.4); Monocytes # (Auto) 1.24 K/mcL (0.10-0.90); Monocytes % (Auto) 10.8 % (1.0-12.0); Platelet Count 341 K/mcL (140-440); RBC 4.14 M/mcL (4.63-6.08); Red Cell Distribution Width 18.2 % (11.5-14.5); WBC 11.5 K/mcL (4.50-11.00)
[2019-07-16 07:07] LABS: ALT/SGPT 29 U/l (0-40); AST/SGOT 24 U/l (0-37); Albumin 2.9 gm/dL (3.2-5.2); Albumin/Globulin Ratio 1.2 (1.0-2.3); Alkaline Phosphatase 69 U/L (39-117); Bilirubin,Direct < 0.2 mg/dL (0.0-0.3); Bilirubin,Total 0.5 mg/dL (0.0-1.0); Blood Urea Nitrogen 8 mg/dl (8-23); Calcium 8.5 mg/dl (8.6-10.4); Carbon Dioxide 22 mmol/L (22-30); Globulin 2.5 gm/dL (2.2-3.7); Glomerular Filtration Rate 83; Glucose 100 mg/dL (70-105); Lactate Dehydrogenase 213 U/L (94-250); Phosphorous 3.9 mg/dL (2.7-4.5); Triglycerides 138 mg/dl (<150); Uric Acid 4.6 mg/dL (2.5-8.0)
[2019-07-16 07:08] LABS: Chloride 93 mmol/L (96-108)
[2019-07-16] MEDS: PANTOPRAZOLE 40 MG VIAL IV SCH ×2 (07:29→17:07)
[2019-07-16] MEDS: LEVOFLOXACIN 750 MG/150 ML BAG IV SCH (10:14)
--- NOTE | 2019-07-16 14:54 | Surgical Pathology Report ---
HISTOLOGY SPECIMEN MICROSCOPIC DIAGNOSIS COLON, ANASTOMOTIC SITE, REVISION: -- COLONIC MUCOSA WITH MODERATE ACUTE/CHRONIC INFLAMMATION AND EDEMA. -- SURGICAL MARGINS VIABLE. -- NO MALIGNANCY IDENTIFIED. (RLF:sln) CLINICAL HISTORY Colorectal anastomotic leak. GROSS DESCRIPTION Received in formalin labeled anastomosis, is a segment of colon with an overall measurement of 8.2 x 7.1 x 5 cm. One margin is received opened and inked orange. The opposite end is received closed and inked black. The prior anastomotic site is identified and measures 0.8 cm from the nearest orange inked margin and 1.5 cm to the nearest black inked margin. The serosal surface is otherwise caro-purple and unremarkable. There is adipose tissue covering the majority of the surface. The specimen is opened to reveal plicated caro mucosa with anastomotic site. There is an additional separate fragment of adipose tissue within the container that measures 7.5 x 4.1 x 0.7 cm. Unscrambler sections submitted: A1 - opened orange inked margin; A2 - black inked closed margin; A3-A4 - front desk representative sections of anastomosis; A5 - grossly normal bowel; A6 - front desk representative section of separate fragment. (EBD:adj) Electronically Signed by: Sumi Kahn M.D.
--- NOTE | 2019-07-16 18:35 | General Surgery Progress Note ---
Subjective Patient reports: feels better, pain is less, tolerating liquids well, flatus, no bowel movement, afebrile Narrative: Note initiated : 07/16/19 at 6:33 pm Service Date, if different from initiated Date: [] Patient: Tarun Alvarez 74 y/o M admitted on 07/06/19 for Sigmoid Colectomy. Chief Complaint: [patient states that he feels better. He still has copious flatus and has tolerated clear liquids without difficulty. No bowel movement so far. His pain is well controlled] Objective Temp Pulse Resp BP Pulse Ox 98.2 F 91 H 20 148/75 96 07/16/19 16:00 07/16/19 16:00 07/16/19 16:00 07/16/19 16:00 07/16/19 16:00 - Additional Data Intake & Output - Last 24 hours: Intake & Output 07/14/19 07/15/19 07/16/19 07/17/19 05:59 05:59 05:59 05:59 Intake Total 3978 3135 4130 3525 Output Total 1675 2785 6160 2610 Balance 2303 350 -2030 915 Weight 234 lb 1 oz 236 lb 235 lb 235 lb - General physical appearance well developed, well nourished, no distress - Eyes PERRL, normal ocular movement - ENT normal pinna, normal nares, normal mucosa, no hearing loss, no congestion - Neck no masses, no bruits, trachea midline, no lymphadenopathy, no venous distension - Respiratory normal expansion, normal respiratory effort, clear to auscultation - Cardiovascular Cardiovascular exam: Present: normal rate and rhythm, RRR, +S1, +S2. Absent: JVD, tachycardia - Abdomen non tender, bowel sounds (present), surgical scars (none), masses (none) - Integumentary no rash, no growths, no abnormal pigmentation - Neurologic normal coordination, normal sensation - Musculoskeletal normal gait, normal posture - Psychiatric oriented to time, oriented to person, oriented to place, speech is normal, memory intact - Labs 07/16/19 05:22 07/16/19 05:22 Diabetes panel 07/16/19 Range/Units 05:22 Sodium 129 L (133-145) mmol/L Potassium 3.4 (3.3-5.1) mmol/L Chloride 93 L (96-108) mmol/L Carbon Dioxide 22 (22-30) mmol/L BUN 8 (8-23) mg/dl Creatinine 0.9 (0.7-1.2) mg/dl Glucose 100 (70-105) mg/dL Calcium 8.5 L (8.6-10.4) mg/dl AST 24 (0-37) U/l ALT 29 (0-40) U/l Alkaline Phosphatase 69 (39-117) U/L Total Protein 5.4 L (5.9-8.4) gm/dL Albumin 2.9 L (3.2-5.2) gm/dL Triglycerides 138 (<150) mg/dl Calcium panel 07/16/19 Range/Units 05:22 Calcium 8.5 L (8.6-10.4) mg/dl Phosphorus 3.9 (2.7-4.5) mg/dL Albumin 2.9 L (3.2-5.2) gm/dL Pituitary panel 07/16/19 Range/Units 05:22 Sodium 129 L (133-145) mmol/L Potassium 3.4 (3.3-5.1) mmol/L Chloride 93 L (96-108) mmol/L Carbon Dioxide 22 (22-30) mmol/L BUN 8 (8-23) mg/dl Creatinine 0.9 (0.7-1.2) mg/dl Glucose 100 (70-105) mg/dL Calcium 8.5 L (8.6-10.4) mg/dl Adrenal panel 07/16/19 Range/Units 05:22 Sodium 129 L (133-145) mmol/L Potassium 3.4 (3.3-5.1) mmol/L Chloride 93 L (96-108) mmol/L Carbon Dioxide 22 (22-30) mmol/L BUN 8 (8-23) mg/dl Creatinine 0.9 (0.7-1.2) mg/dl Glucose 100 (70-105) mg/dL Calcium 8.5 L (8.6-10.4) mg/dl Total Bilirubin 0.5 (0.0-1.0) mg/dL AST 24 (0-37) U/l ALT 29 (0-40) U/l Alkaline Phosphatase 69 (39-117) U/L Total Protein 5.4 L (5.9-8.4) gm/dL Albumin 2.9 L (3.2-5.2) gm/dL Assessment and Plan (1) Anastomotic leak of intestine Status: Acute Assessment and plan: Patient is doing well. Pain is adequately controlled. Stoma is beginning to work Clear liquid diet Current Visit: Yes (2) Type 2 diabetes mellitus without complication Problem details: 06/14/2008 Status: Chronic Assessment and plan: Continue Accu-Cheks and sliding scale insulin Current Visit: No (3) Neoplasm of sigmoid colon Status: Resolved Current Visit: Yes (4) Hematuria Status: Resolved Current Visit: Yes (5) Generalized anxiety disorder Status: Acute Current Visit: Yes (6) Sleep apnea Status: Chronic Current Visit: No (7) BPH (benign prostatic hyperplasia) Status: Chronic Current Visit: No - Time Spent With Patient Total time spent is greater than 50% in coordination of care (as documented) at patient's floor/unit and/or counseling patient:
[2019-07-17] MEDS: HYDROmorphone* 2 MG/ML VIAL IV PRN ×3 (02:33→21:01)
[2019-07-17] MEDS: LACTATED RINGERS 1,000 ML IV SCH ×3 (02:57→23:52)
[2019-07-17] MEDS: 0.9 % SODIUM CHLORIDE 10 ML SYRINGE IV SCH ×3 (06:22→23:06)
[2019-07-17] MEDS: hydrALAZINE 20 MG/ML VIAL IV PRN (06:22)
[2019-07-17] MEDS: METOCLOPRAMIDE 10 MG/2 ML VIAL IV SCH ×4 (06:31→23:49)
[2019-07-17] MEDS: PANTOPRAZOLE 40 MG VIAL IV SCH ×2 (07:19→17:01)
[2019-07-17] MEDS: INSULIN LISPRO 1 UNIT/0.01 ML UNIT SQ SCH ×4 (07:22→21:04)
[2019-07-17] MEDS: LEVOFLOXACIN 750 MG/150 ML BAG IV SCH (09:08)
[2019-07-17 09:30] LABS: Basophils # (Auto) 0.04 K/mcL (0.00-0.30); Basophils % (Auto) 0.3 % (0.0-2.0); Eosinophils # (Auto) 0.12 K/mcL (0.00-0.70); Granulocytes % (Auto) 74.4 % (38.0-78.0); Hematocrit 28.9 % (40.1-51.0); Hemoglobin 9.4 g/dL (13.7-17.5); Lymphocytes # (Auto) 1.71 K/mcL (1.50-4.80); Lymphocytes % (Auto) 13.6 % (15.5-49.0); Mean Cell Volume 71.9 fL (80.0-100.0); Mean Corpuscular HGB Conc 32.5 g/dL (31.0-36.0); Mean Platelet Volume 9.2 fL (7.4-10.4); Monocytes # (Auto) 1.34 K/mcL (0.10-0.90); Monocytes % (Auto) 10.7 % (1.0-12.0); Platelet Count 349 K/mcL (140-440); RBC 4.02 M/mcL (4.63-6.08); Red Cell Distribution Width 18.2 % (11.5-14.5); WBC 12.6 K/mcL (4.50-11.00)
[2019-07-17 09:41] LABS: ALT/SGPT 37 U/l (0-40); AST/SGOT 27 U/l (0-37); Albumin 3.2 gm/dL (3.2-5.2); Albumin/Globulin Ratio 1.3 (1.0-2.3); Alkaline Phosphatase 79 U/L (39-117); Bilirubin,Direct < 0.2 mg/dL (0.0-0.3); Bilirubin,Total 0.4 mg/dL (0.0-1.0); Blood Urea Nitrogen 7 mg/dl (8-23); Calcium 8.6 mg/dl (8.6-10.4); Carbon Dioxide 24 mmol/L (22-30); Globulin 2.5 gm/dL (2.2-3.7); Glomerular Filtration Rate 83; Glucose 116 mg/dL (70-105); Lactate Dehydrogenase 274 U/L (94-250); Phosphorous 3.5 mg/dL (2.7-4.5); Triglycerides 140 mg/dl (<150); Uric Acid 4.4 mg/dL (2.5-8.0)
[2019-07-17 09:45] LABS: Chloride 95 mmol/L (96-108)
--- NOTE | 2019-07-17 12:53 | XRay Report ---
CLINICAL INFORMATION: Postsurgical follow-up TECHNIQUE: Supine and upright abdomen COMPARISON: Previous examination dated 07/12/2019 FINDINGS: Skin angelique in a vertical pelvic incision. There are surgical drains in the pelvis. There is colonic gas. There is prominent small bowel gas in the left side of the abdomen. Small bowel measures approximately 4 cm in cross-sectional diameter. Appearance is consistent with ileus. There is no pneumoperitoneum. There is right-sided subcutaneous gas which is new since previous examination. IMPRESSION: 1. Subcutaneous soft tissue gas along the right flank. This is new 2. Small and large bowel gas. Appearance is consistent with ileus Interpreted and Authenticated by: Florin Moreno 07/17/19
--- NOTE | 2019-07-17 18:46 | General Surgery Progress Note ---
Subjective Patient reports: feels better, pain is less, tolerating liquids well, flatus, no bowel movement, afebrile Narrative: Note initiated : 07/17/19 at 6:42 pm Service Date, if different from initiated Date: [] Patient: Tarun Alvarez 74 y/o M admitted on 07/06/19 for Sigmoid Colectomy. Chief Complaint: [patient states that he feels better. He is afebrile. He is having copious flatus but has not had a bowel movement yet. He denies abdominal tenderness. His abdomen is distended but soft and pliable. There is no tenderness of the anterior abdomen or flanks. RAPHAEL drainage is serous. White blood count 12.6, hemoglobin 9.4, hematocrit 28.9. Plain film x-rays shows dilated colon And proximal small bowel. There is a new appearance of air along his right flank which appears to be extending from the level of the drains. There is no crepitus or tenderness in this area.] Objective Temp Pulse Resp BP Pulse Ox 97.9 F 80 22 150/74 95 07/17/19 17:00 07/17/19 17:00 07/17/19 17:00 07/17/19 17:00 07/17/19 17:00 - Additional Data Intake & Output - Last 24 hours: Intake & Output 07/15/19 07/16/19 07/17/19 07/18/19 05:59 05:59 05:59 05:59 Intake Total 3135 4130 3915 1230 Output Total 2785 6160 5190 1480 Balance 350 2030 -1275 -250 Weight 236 lb 235 lb 231 lb - General physical appearance well developed, well nourished, no distress, other (patient has diminished reserve) - Eyes PERRL, normal ocular movement - ENT normal pinna, normal nares, normal mucosa, no congestion, decreased hearing - Neck no masses ( surgery), no bruits, trachea midline, no lymphadenopathy, no venous distension - Respiratory normal expansion, normal respiratory effort, clear to auscultation - Cardiovascular Cardiovascular exam: Present: normal rate and rhythm, RRR, +S1, +S2. Absent: JVD, tachycardia - Abdomen non tender, bowel sounds (present), surgical scars (none), masses (none), distended (, mild distention, but abdomen is soft and pliable without tenderness. No guarding) - Rectum normal sphincter tone, no hemorrhoids, no tenderness, no masses, no bleeding - Integumentary no growths, no abnormal pigmentation, other (. Mild erythematous, slightly raised rash to back) - Neurologic normal coordination, normal sensation - Musculoskeletal normal gait, normal posture - Psychiatric oriented to time, oriented to person, oriented to place, speech is normal, memory intact - Labs 07/17/19 06:30 07/17/19 06:30 Diabetes panel 07/17/19 Range/Units 06:30 Sodium 132 L (133-145) mmol/L Potassium 3.6 (3.3-5.1) mmol/L Chloride 95 L (96-108) mmol/L Carbon Dioxide 24 (22-30) mmol/L BUN 7 L (8-23) mg/dl Creatinine 0.9 (0.7-1.2) mg/dl Glucose 116 H (70-105) mg/dL Calcium 8.6 (8.6-10.4) mg/dl AST 27 (0-37) U/l ALT 37 (0-40) U/l Alkaline Phosphatase 79 (39-117) U/L Total Protein 5.7 L (5.9-8.4) gm/dL Albumin 3.2 (3.2-5.2) gm/dL Triglycerides 140 (<150) mg/dl Calcium panel 07/17/19 Range/Units 06:30 Calcium 8.6 (8.6-10.4) mg/dl Phosphorus 3.5 (2.7-4.5) mg/dL Albumin 3.2 (3.2-5.2) gm/dL Pituitary panel 07/17/19 Range/Units 06:30 Sodium 132 L (133-145) mmol/L Potassium 3.6 (3.3-5.1) mmol/L Chloride 95 L (96-108) mmol/L Carbon Dioxide 24 (22-30) mmol/L BUN 7 L (8-23) mg/dl Creatinine 0.9 (0.7-1.2) mg/dl Glucose 116 H (70-105) mg/dL Calcium 8.6 (8.6-10.4) mg/dl Adrenal panel 07/17/19 Range/Units 06:30 Sodium 132 L (133-145) mmol/L Potassium 3.6 (3.3-5.1) mmol/L Chloride 95 L (96-108) mmol/L Carbon Dioxide 24 (22-30) mmol/L BUN 7 L (8-23) mg/dl Creatinine 0.9 (0.7-1.2) mg/dl Glucose 116 H (70-105) mg/dL Calcium 8.6 (8.6-10.4) mg/dl Total Bilirubin 0.4 (0.0-1.0) mg/dL AST 27 (0-37) U/l ALT 37 (0-40) U/l Alkaline Phosphatase 79 (39-117) U/L Total Protein 5.7 L (5.9-8.4) gm/dL Albumin 3.2 (3.2-5.2) gm/dL Assessment and Plan (1) Anastomotic leak of intestine Status: Acute Assessment and plan: Patient is doing well. Pain is adequately controlled. Stoma is beginning to work Clear liquid diet Current Visit: Yes (2) Type 2 diabetes mellitus without complication Problem details: 06/14/2008 Status: Chronic Assessment and plan: Continue Accu-Cheks and sliding scale insulin Current Visit: No (3) Neoplasm of sigmoid colon Status: Resolved Current Visit: Yes (4) Hematuria Status: Resolved Current Visit: Yes (5) Generalized anxiety disorder Status: Acute Current Visit: Yes (6) Sleep apnea Status: Chronic Current Visit: No (7) BPH (benign prostatic hyperplasia) Status: Chronic Current Visit: No - Time Spent With Patient Total time spent is greater than 50% in coordination of care (as documented) at patient's floor/unit and/or counseling patient:
[2019-07-18] MEDS: hydrALAZINE 20 MG/ML VIAL IV PRN ×3 (03:07→16:36)
[2019-07-18] MEDS: HYDROmorphone* 2 MG/ML VIAL IV PRN ×3 (04:17→18:45)
[2019-07-18] MEDS: 0.9 % SODIUM CHLORIDE 10 ML SYRINGE IV SCH ×3 (05:34→21:34)
[2019-07-18] MEDS: METOCLOPRAMIDE 10 MG/2 ML VIAL IV SCH ×4 (05:34→23:34)
[2019-07-18 07:16] LABS: ALT/SGPT 38 U/l (0-40); AST/SGOT 25 U/l (0-37); Albumin 3.2 gm/dL (3.2-5.2); Albumin/Globulin Ratio 1.4 (1.0-2.3); Alkaline Phosphatase 74 U/L (39-117); Bilirubin,Direct < 0.2 mg/dL (0.0-0.3); Bilirubin,Total 0.4 mg/dL (0.0-1.0); Blood Urea Nitrogen 7 mg/dl (8-23); Calcium 8.6 mg/dl (8.6-10.4); Carbon Dioxide 24 mmol/L (22-30); Chloride 97 mmol/L (96-108); Globulin 2.3 gm/dL (2.2-3.7); Glomerular Filtration Rate 83; Glucose 108 mg/dL (70-105); Lactate Dehydrogenase 187 U/L (94-250); Phosphorous 3.7 mg/dL (2.7-4.5); Triglycerides 155 mg/dl (<150); Uric Acid 4.6 mg/dL (2.5-8.0)
[2019-07-18] MEDS: PANTOPRAZOLE 40 MG VIAL IV SCH ×2 (07:25→17:59)
[2019-07-18] MEDS: INSULIN LISPRO 1 UNIT/0.01 ML UNIT SQ SCH ×4 (07:26→21:34)
--- NOTE | 2019-07-18 08:48 | Operative Note ---
DATE OF OPERATION: 07/06/2019 PREOPERATIVE DIAGNOSIS: Sigmoid colon carcinoma. POSTOPERATIVE DIAGNOSIS: Sigmoid colon carcinoma. PROCEDURE: Segmental resection of sigmoid colon. SURGEON: Gladys Hewitt M.D. FINDINGS: Ulcerated neoplasm of distal sigmoid of peritoneal reflection, thickened foreshortened mesentery with extensive fatty appendiceal epiploica. There were a few infarcted appendiceal epiploica. DESCRIPTION OF PROCEDURE: Under general anesthesia, the patient's abdomen was prepped and draped in the sterile field. A time-out procedure was carried out as per protocol. Initially, a lower midline incision was made. Exploration revealed a very hard neoplasm in the colon above the peritoneal reflection. There was extensive black ink where the line rider had tattooed the area. The sigmoid was redundant and easily mobile. Sigmoid colon was mobilized along the lateral peritoneal attachments extending from the splenic flexure down to the peritoneal reflection. Using blunt dissection, the colon was mobilized laterally. The mesentery was very foreshortened and thickened. The colon was covered with extensive fatty appendiceal epiploica. Once the colon was mobilized, the rectum was mobilized down into the hollow of the sacrum and the peritoneum was then incised anteriorly and blunt dissection and separation of the colon was carried out, it from the base of the bladder. The mesentery appeared to have a few nodes that were clinically involved. As many of these as could be removed were removed. The inferior mesenteric and the lateral vascular pedicles were dissected, clamped and divided. They were then controlled with ties of 2-0 silk. Once the rectum was circumferentially dissected, I able to get slightly more advanced distally. It was definitely about 2.5 to 3 cm below the actual neoplasm. A proximal transection of the colon was carried out using a contour stapler. The pelvis was too small to accommodate the stapler so angled intestinal clamps were used to clamp below the mass and the bowel was divided. The rest of the mesentery was divided using the LigaSure. The specimen was then taken to the back table and opened. The margins were good, but it appeared that the neoplasm was ulcerated and extended through the wall and there appeared to be some small peritoneal studding. I then regowned and gloved. Irrigation of the operative field was carried out. The course of the ureter was confirmed and further dissection was carried out. The colon easily reached down into the pelvis, but the wall of the mesentery was extremely thickened and initially there was some concern; however, since there was no tension it was elected to do a freehand closure using ____. The distal end of the sigmoid was stapled with a TA60 to give full, comfortable closure. The edge of the rectal stump was trimmed so that I had good mucosa. There was significant fat even around the wall. A longitudinal incision was made along the taenia, and the posterior wall of the rectal stump was sutured to the lower margin of the sigmoid opening using a running 2-0 Prolene. Next, an internal row of 2-0 Monocryl was used and placed in a running locking imbricating fashion to get good full thickness of the rectal mucosa and wall. Anteriorly, there was some concern that the fat was very thick, so it was trimmed once more. There was excellent pulsatile bleeding from the wall of the rectum anteriorly so this was redone. The internal ____ was completed after which the anterior serosal to serosal layer was placed using a running locking 2-0 Prolene. Evaluation revealed a good patent wide anastomosis. No bleeding. Irrigation was carried out. There was minimal mesenteric defect. A #10 Douglas drain was placed in the hollow of the pelvis and anterior and below the anastomosis. It was brought out through a separate stab incision on the right side. Sponge, needle, instrument and blade counts were verified as correct. The nasogastric tube was positioned in the stomach. The fascia and peritoneum were closed with running #1 Prolene. The subcutaneous fat was closed with 2-0 Monocryl. Skin was closed with angelique. The drain was secured with 3-0 silk. The patient tolerated the procedure well. He was awakened, extubated, and transferred to the postanesthetic care unit in a stable, satisfactory condition. LCS:irvin Job ID: [id number] Doc ID: [id number] Gladys Hewitt M.D.
[2019-07-18 08:49] LABS: Basophils # (Auto) 0.04 K/mcL (0.00-0.30); Basophils % (Auto) 0.3 % (0.0-2.0); Eosinophils # (Auto) 0.24 K/mcL (0.00-0.70); Eosinophils % (Auto) 1.9 % (0.0-7.0); Granulocytes % (Auto) 72.3 % (38.0-78.0); Hematocrit 28.8 % (40.1-51.0); Hemoglobin 9.2 g/dL (13.7-17.5); Lymphocytes # (Auto) 1.69 K/mcL (1.50-4.80); Lymphocytes % (Auto) 13.6 % (15.5-49.0); Mean Cell Volume 72.5 fL (80.0-100.0); Mean Corpuscular HGB Conc 31.9 g/dL (31.0-36.0); Mean Platelet Volume 9.1 fL (7.4-10.4); Monocytes # (Auto) 1.48 K/mcL (0.10-0.90); Monocytes % (Auto) 11.9 % (1.0-12.0); Platelet Count 348 K/mcL (140-440); RBC 3.97 M/mcL (4.63-6.08); Red Cell Distribution Width 18.4 % (11.5-14.5); WBC 12.5 K/mcL (4.50-11.00)
[2019-07-18] MEDS: LEVOFLOXACIN 750 MG/150 ML BAG IV SCH (08:58)
[2019-07-18] MEDS: LACTATED RINGERS 1,000 ML IV SCH (10:12)
--- NOTE | 2019-07-18 11:25 | General Surgery Progress Note ---
Subjective Patient reports: feels better, tolerating liquids well, voiding w/o difficulty, flatus, no bowel movement Narrative: Note initiated : 07/18/19 at 11:22 am Service Date, if different from initiated Date: [] Patient: Tarun Alvarez 74 y/o M admitted on 07/06/19 for Sigmoid Colectomy. Chief Complaint: []Post op Colectomy on Jun and re-operation on Jun with Jose Alfredo's colostomy. Doing well overall and is tolerating Full liquids with Gas in Colostomy bag Wound is closed w/ angelique and there is no signs of wound infection Objective Temp Pulse Resp BP Pulse Ox 96.7 F L 75 24 H 172/87 96 07/18/19 08:36 07/18/19 08:36 07/18/19 08:36 07/18/19 08:36 07/18/19 08:36 - Additional Data Intake & Output - Last 24 hours: Intake & Output 07/16/19 07/17/19 07/18/19 07/19/19 05:59 05:59 05:59 05:59 Intake Total 4130 3915 2430 Output Total 6160 5190 3560 300 Balance -2030 -1275 -1130 -300 Weight 235 lb 231 lb 228 lb 8 oz - Labs 07/18/19 05:08 07/18/19 05:08 Diabetes panel 07/18/19 Range/Units 05:08 Sodium 132 L (133-145) mmol/L Potassium 3.2 L (3.3-5.1) mmol/L Chloride 97 (96-108) mmol/L Carbon Dioxide 24 (22-30) mmol/L BUN 7 L (8-23) mg/dl Creatinine 0.9 (0.7-1.2) mg/dl Glucose 108 H (70-105) mg/dL Calcium 8.6 (8.6-10.4) mg/dl AST 25 (0-37) U/l ALT 38 (0-40) U/l Alkaline Phosphatase 74 (39-117) U/L Total Protein 5.5 L (5.9-8.4) gm/dL Albumin 3.2 (3.2-5.2) gm/dL Triglycerides 155 H (<150) mg/dl Calcium panel 07/18/19 Range/Units 05:08 Calcium 8.6 (8.6-10.4) mg/dl Phosphorus 3.7 (2.7-4.5) mg/dL Albumin 3.2 (3.2-5.2) gm/dL Pituitary panel 07/18/19 Range/Units 05:08 Sodium 132 L (133-145) mmol/L Potassium 3.2 L (3.3-5.1) mmol/L Chloride 97 (96-108) mmol/L Carbon Dioxide 24 (22-30) mmol/L BUN 7 L (8-23) mg/dl Creatinine 0.9 (0.7-1.2) mg/dl Glucose 108 H (70-105) mg/dL Calcium 8.6 (8.6-10.4) mg/dl Adrenal panel 07/18/19 Range/Units 05:08 Sodium 132 L (133-145) mmol/L Potassium 3.2 L (3.3-5.1) mmol/L Chloride 97 (96-108) mmol/L Carbon Dioxide 24 (22-30) mmol/L BUN 7 L (8-23) mg/dl Creatinine 0.9 (0.7-1.2) mg/dl Glucose 108 H (70-105) mg/dL Calcium 8.6 (8.6-10.4) mg/dl Total Bilirubin 0.4 (0.0-1.0) mg/dL AST 25 (0-37) U/l ALT 38 (0-40) U/l Alkaline Phosphatase 74 (39-117) U/L Total Protein 5.5 L (5.9-8.4) gm/dL Albumin 3.2 (3.2-5.2) gm/dL Assessment and Plan (1) Neoplasm of sigmoid colon Status: Resolved Current Visit: Yes - Narrative A/P Narrative: PLan to send home in 2-3 days for follow up as out patient - Time Spent With Patient Total time spent is greater than 50% in coordination of care (as documented) at patient's floor/unit and/or counseling patient: less than 15 minutes
[2019-07-19] MEDS: hydrALAZINE 20 MG/ML VIAL IV PRN ×2 (04:15→15:16)
[2019-07-19] MEDS: HYDROmorphone* 2 MG/ML VIAL IV PRN ×3 (04:15→23:57)
[2019-07-19] MEDS: METOCLOPRAMIDE 10 MG/2 ML VIAL IV SCH ×4 (05:56→23:58)
[2019-07-19] MEDS: 0.9 % SODIUM CHLORIDE 10 ML SYRINGE IV SCH ×3 (05:57→23:57)
[2019-07-19] MEDS: INSULIN LISPRO 1 UNIT/0.01 ML UNIT SQ SCH ×4 (08:18→20:24)
[2019-07-19] MEDS: LEVOFLOXACIN 750 MG/150 ML BAG IV SCH (08:20)
[2019-07-19] MEDS: PANTOPRAZOLE 40 MG VIAL IV SCH ×2 (08:24→16:28)
--- NOTE | 2019-07-19 10:54 | General Surgery Progress Note ---
Subjective Patient reports: feels better, pain is less, tolerating liquids well, bowel movement Narrative: Note initiated : 07/19/19 at 10:52 am Service Date, if different from initiated Date: [] Patient: Tarun Alvarez 74 y/o M admitted on 07/06/19 for Sigmoid Colectomy. Chief Complaint: [] Alert awake visiting with no complaints, Colostomy functioning well Objective Temp Pulse Resp BP Pulse Ox 97.6 F 69 22 130/72 94 07/19/19 08:24 07/19/19 08:24 07/19/19 08:24 07/19/19 08:24 07/19/19 08:24 - Additional Data Intake & Output - Last 24 hours: Intake & Output 07/17/19 07/18/19 07/19/19 07/20/19 05:59 05:59 05:59 05:59 Intake Total 3915 2430 1187 Output Total 5190 3560 1715 Balance -1275 -1130 -528 Weight 231 lb 228 lb 8 oz 226 lb 8 oz - Abdomen soft, non tender, wound (Wound clean dry angelique intact, no infectio ) - Labs 07/18/19 05:08 07/18/19 05:08 Assessment and Plan (1) Neoplasm of sigmoid colon Status: Resolved Current Visit: Yes - Narrative A/P Narrative: Will advance diet to regular and probably D/C on Tuesday - Time Spent With Patient Total time spent is greater than 50% in coordination of care (as documented) at patient's floor/unit and/or counseling patient:
[2019-07-20] MEDS: hydrALAZINE 20 MG/ML VIAL IV PRN ×3 (03:44→20:14)
[2019-07-20] MEDS: METOCLOPRAMIDE 10 MG/2 ML VIAL IV SCH ×3 (05:55→16:39)
[2019-07-20] MEDS: 0.9 % SODIUM CHLORIDE 10 ML SYRINGE IV SCH ×3 (05:56→20:14)
[2019-07-20] MEDS: PANTOPRAZOLE 40 MG VIAL IV SCH ×2 (07:11→16:39)
[2019-07-20] MEDS: INSULIN LISPRO 1 UNIT/0.01 ML UNIT SQ SCH ×4 (07:12→20:20)
[2019-07-20] MEDS: LEVOFLOXACIN 750 MG/150 ML BAG IV SCH (08:39)
--- NOTE | 2019-07-20 10:57 | General Surgery Progress Note ---
Subjective Patient reports: no new complaints Narrative: Note initiated : 07/20/19 at 10:55 am Service Date, if different from initiated Date: [] Patient: Tarun Alvarez 74 y/o M admitted on 07/06/19 for Sigmoid Colectomy. Chief Complaint: []post op sigmoid resection and Santiago's colostomy for cancer doing well J-P drains out wound OK Objective Temp Pulse Resp BP Pulse Ox 97.9 F 86 22 140/80 94 07/20/19 08:00 07/20/19 08:00 07/20/19 08:00 07/20/19 08:00 07/20/19 08:00 - Additional Data Intake & Output - Last 24 hours: Intake & Output 07/18/19 07/19/19 07/20/19 07/21/19 05:59 05:59 05:59 05:59 Intake Total 2430 1187 1100 200 Output Total 3560 1715 2465 300 Balance -1130 -528 -1365 -100 Weight 228 lb 8 oz 226 lb 8 oz 224 lb - General physical appearance well developed, well nourished - Respiratory normal respiratory effort, clear to percussion - Cardiovascular Cardiovascular exam: Present: normal rate and rhythm. Absent: diastolic murmur - Abdomen soft, non tender, bowel sounds, wound (Wound clean dry dressings removed will get in Shower today) - Labs 07/18/19 05:08 07/18/19 05:08 Assessment and Plan (1) Neoplasm of sigmoid colon Status: Resolved Current Visit: Yes - Time Spent With Patient Total time spent is greater than 50% in coordination of care (as documented) at patient's floor/unit and/or counseling patient:
[2019-07-21] MEDS: hydrALAZINE 20 MG/ML VIAL IV PRN (00:35)
[2019-07-21] MEDS: METOCLOPRAMIDE 10 MG/2 ML VIAL IV SCH ×3 (00:42→11:35)
[2019-07-21] MEDS: 0.9 % SODIUM CHLORIDE 10 ML SYRINGE IV SCH (05:55)
[2019-07-21] MEDS: PANTOPRAZOLE 40 MG VIAL IV SCH (07:56)
[2019-07-21] MEDS: INSULIN LISPRO 1 UNIT/0.01 ML UNIT SQ SCH (07:56)
[2019-07-21] MEDS ORDERED: FELODIPINE XR 5 MG TABLET PO SCH (09:00)
[2019-07-21] MEDS ORDERED: LOSARTAN 50 MG TABLET PO SCH (09:00)
[2019-07-21] MEDS ORDERED: HYDROCHLOROTHIAZIDE 12.5 MG CAPSULE PO SCH (09:00)
[2019-07-21] MEDS ORDERED: LACTOPEROXI/GLUC OXID/POT THIO 1 EACH GEL..EA. TOPICAL PRN (10:23)
[2019-07-21] MEDS ORDERED: SODIUM CHLORIDE NASAL 1 SPRAY BOTTLE NAS PRN (10:23)
--- NOTE | 2019-07-21 10:54 | Discharge Summary ---
Providers - Providers Patient information: Note initiated : 07/21/19 at 10:51 am Service Date, if different from initiated Date: [] Patient: Tarun Alvarez 74 y/o M admitted on 07/06/19 for Sigmoid Colectomy. Chief Complaint: [] Surgery on Jun for sigmoid colectomy and primary anastomosis then repeat Surgery on Jun for amaya's style colostomy for anastomotic leak He did well after the second surgery Date of admission: 07/06/19 Discharge date: 07/21/19 Attending physician: Gladys Hewitt Hospitalization Hospital Course: After second surgery and colostomy he did well and once tolerating a reguilar diet was ready for D/C Discharge diagnosis: Malignancy of Left colon Reason for admission: Coloc Cancer Procedures: Sigmoid colectomy with anastomosis Jun Re-exploration and Amaya's colostomy Jun Exam Temp Pulse Resp BP Pulse Ox 97.6 F 77 18 149/90 94 07/21/19 07:28 07/21/19 07:28 07/21/19 07:28 07/21/19 07:28 07/21/19 07:28 - General physical appearance well developed, well nourished, no distress - Cardiovascular Cardiovascular exam IM: Present: normal rate and rhythm - Respiratory normal respiratory effort, clear to percussion, clear to auscultation - Abdomen Abdomen: Present: soft, non tender, bowel sounds, surgical scars, wound (Ostomy functioning, Wound clean dry [place] intact) Discharge Plan - Patient/Caregiver Discharge Instructions Activity: increase activity as tolerated Diet: Regular Diet - Follow up Plan Follow up with: Gladys Hewitt MD [Physician] - 07/19/19 1:30 pm Disposition: Home Health Service Prognosis: Good Rehab Potential: Good Pending Studies Resuscitation Status Do Not Resuscitate Diet GI Soft/Transitional Start Kristina Jul 19 1503 Diagnostic Test (Pha) (Accu-Chek) 1 each FS ACHS [facility]; Protocol Last Admin: 07/21/19 07:56 Dose: 1 each Documented by: [email or web address] Admin: 07/20/19 20:19 Dose: 1 each Documented by: Admin: 07/20/19 16:39 Dose: 1 each Documented by: Admin: 07/20/19 11:03 Dose: 1 each Documented by: Admin: 07/20/19 07:11 Dose: 1 each Documented by: Admin: 07/19/19 20:24 Dose: 1 each Documented by: Admin: 07/19/19 16:27 Dose: 1 each Documented by: Admin: 07/19/19 13:57 Dose: 1 each Documented by: Admin: 07/19/19 08:17 Dose: 1 each Documented by: Admin: 07/18/19 21:33 Dose: 1 each Documented by: Admin: 07/18/19 16:38 Dose: 1 each Documented by: Admin: 07/18/19 11:46 Dose: 1 each Documented by: Admin: 07/18/19 07:26 Dose: 1 each Documented by: Admin: 07/17/19 21:03 Dose: 1 each Documented by: Admin: 07/17/19 17:01 Dose: 1 each Documented by: Admin: 07/17/19 11:58 Dose: 1 each Documented by: Admin: 07/17/19 07:20 Dose: 1 each Documented by: Admin: 07/16/19 20:18 Dose: 1 each Documented by: Admin: 07/16/19 17:13 Dose: 1 each Documented by: NICOLE Felodipine (Plendil Xr) 2.5 mg PO DAILY [facility] Last Admin: 07/21/19 09:49 Dose: 2.5 mg Documented by: [email or web address] Hydralazine HCl (Apresoline) 10 mg IV Q4HP PRN PRN Reason: Hypertension Last Admin: 07/21/19 00:35 Dose: 10 mg Documented by: Admin: 07/20/19 20:14 Dose: 10 mg Documented by: Admin: 07/20/19 04:10 Dose: 10 mg Documented by: Admin: 07/19/19 15:16 Dose: 10 mg Documented by: Admin: 07/19/19 04:15 Dose: 10 mg Documented by: Admin: 07/18/19 16:36 Dose: 10 mg Documented by: Admin: 07/18/19 08:59 Dose: 10 mg Documented by: Admin: 07/18/19 03:07 Dose: 10 mg Documented by: Admin: 07/17/19 06:22 Dose: 10 mg Documented by: Admin: 07/16/19 20:55 Dose: 10 mg Documented by: Admin: 07/16/19 15:54 Dose: 10 mg Documented by: Admin: 07/16/19 04:26 Dose: 10 mg Documented by: Admin: 07/15/19 19:05 Dose: 10 mg Documented by: Admin: 07/15/19 12:04 Dose: 10 mg Documented by: Admin: 07/15/19 04:01 Dose: 10 mg Documented by: Admin: 07/14/19 23:36 Dose: 10 mg Documented by: Admin: 07/14/19 19:38 Dose: 10 mg Documented by: Admin: 07/14/19 16:08 Dose: 10 mg Documented by: Admin: 07/14/19 08:53 Dose: 10 mg Documented by: Admin: 07/14/19 04:11 Dose: 10 mg Documented by: Admin: 07/13/19 23:18 Dose: 10 mg Documented by: Admin: 07/13/19 21:01 Dose: 10 mg Documented by: Admin: 07/13/19 12:05 Dose: 10 mg Documented by: Admin: 07/13/19 04:35 Dose: 10 mg Documented by: MAG Hydrochlorothiazide (Oretic) 12.5 mg PO DAILY [facility] Last Admin: 07/21/19 09:48 Dose: 12.5 mg Documented by: [email or web address] Hydromorphone HCl (Dilaudid) 1 mg IV Q2HP PRN; Protocol PRN Reason: Per Pain Protocol Last Admin: 07/19/19 23:57 Dose: 1 mg Documented by: Admin: 07/19/19 13:58 Dose: 1 mg Documented by: Admin: 07/19/19 04:15 Dose: 1 mg Documented by: Admin: 07/18/19 18:45 Dose: 1 mg Documented by: Admin: 07/18/19 09:00 Dose: 1 mg Documented by: Admin: 07/18/19 04:17 Dose: 1 mg Documented by: Admin: 07/17/19 21:01 Dose: 1 mg Documented by: Admin: 07/17/19 10:57 Dose: 1 mg Documented by: Admin: 07/17/19 02:33 Dose: 1 mg Documented by: Admin: 07/16/19 20:27 Dose: 1 mg Documented by: Admin: 07/16/19 16:37 Dose: 1 mg Documented by: Admin: 07/16/19 06:09 Dose: 1 mg Documented by: Admin: 07/16/19 00:48 Dose: 1 mg Documented by: Admin: 07/15/19 22:13 Dose: 1 mg Documented by: Admin: 07/15/19 15:23 Dose: 1 mg Documented by: Admin: 07/15/19 07:28 Dose: 1 mg Documented by: Admin: 07/15/19 02:15 Dose: 1 mg Documented by: Admin: 07/14/19 19:38 Dose: 1 mg Documented by: Admin: 07/14/19 07:22 Dose: 1 mg Documented by: Admin: 07/14/19 03:47 Dose: 1 mg Documented by: Admin: 07/13/19 19:22 Dose: 1 mg Documented by: Admin: 07/13/19 08:54 Dose: 1 mg Documented by: Admin: 07/13/19 04:36 Dose: 1 mg Documented by: Admin: 07/12/19 18:18 Dose: 1 mg Documented by: ANNA Levofloxacin (Levaquin) 750 mg in 150 mls @ 100 mls/hr IV Q24H [facility]; Protocol Last Admin: 07/20/19 08:39 Dose: 100 mls/hr Documented by: Infusion: 07/19/19 09:50 Dose: 100 mls/hr Documented by: Admin: 07/19/19 08:20 Dose: 100 mls/hr Documented by: Infusion: 07/18/19 10:55 Dose: 0 mls/hr Documented by: Admin: 07/18/19 08:58 Dose: 100 mls/hr Documented by: Infusion: 07/17/19 10:08 Dose: 0 mls/hr Documented by: Admin: 07/17/19 09:08 Dose: 150 mls/hr Documented by: Infusion: 07/16/19 11:20 Dose: 0 mls/hr Documented by: Admin: 07/16/19 10:14 Dose: 150 mls/hr Documented by: Infusion: 07/15/19 11:00 Dose: 0 mls/hr Documented by: Admin: 07/15/19 09:21 Dose: 100 mls/hr Documented by: Infusion: 07/14/19 10:55 Dose: 0 mls/hr Documented by: Admin: 07/14/19 08:53 Dose: 100 mls/hr Documented by: Infusion: 07/13/19 10:40 Dose: 0 mls/hr Documented by: Admin: 07/13/19 08:54 Dose: 100 mls/hr Documented by: NICOLE Insulin Human Lispro (Humalog) 0 unit SQ ACHS [facility]; Protocol Last Admin: 07/21/19 07:56 Dose: Not Given Documented by: [email or web address] Admin: 07/20/19 20:20 Dose: Not Given Documented by: Admin: 07/20/19 16:39 Dose: Not Given Documented by: Admin: 07/20/19 11:04 Dose: Not Given Documented by: Admin: 07/20/19 07:12 Dose: Not Given Documented by: Admin: 07/19/19 20:24 Dose: Not Given Documented by: Admin: 07/19/19 16:27 Dose: Not Given Documented by: Admin: 07/19/19 13:58 Dose: Not Given Documented by: Admin: 07/19/19 08:18 Dose: Not Given Documented by: Admin: 07/18/19 21:34 Dose: Not Given Documented by: Admin: 07/18/19 16:39 Dose: Not Given Documented by: Admin: 07/18/19 11:47 Dose: Not Given Documented by: Admin: 07/18/19 07:26 Dose: Not Given Documented by: Admin: 07/17/19 21:04 Dose: Not Given Documented by: Admin: 07/17/19 17:07 Dose: Not Given Documented by: Admin: 07/17/19 12:02 Dose: Not Given Documented by: Admin: 07/17/19 07:22 Dose: Not Given Documented by: Admin: 07/16/19 20:20 Dose: Not Given Documented by: Admin: 07/16/19 17:29 Dose: Not Given Documented by: NICOLE Losartan Potassium (Cozaar) 50 mg PO DAILY [facility] Last Admin: 07/21/19 09:48 Dose: 50 mg Documented by: CANDELARIO Metoclopramide HCl (Reglan) 10 mg IV Q6 [facility] Last Admin: 07/21/19 05:55 Dose: 10 mg Documented by: Admin: 07/21/19 00:42 Dose: 10 mg Documented by: Admin: 07/20/19 16:39 Dose: 10 mg Documented by: Admin: 07/20/19 14:47 Dose: 10 mg Documented by: Admin: 07/20/19 05:55 Dose: 10 mg Documented by: Admin: 07/19/19 23:58 Dose: 10 mg Documented by: Admin: 07/19/19 16:27 Dose: 10 mg Documented by: Admin: 07/19/19 15:16 Dose: 10 mg Documented by: Admin: 07/19/19 05:56 Dose: 10 mg Documented by: Admin: 07/18/19 23:34 Dose: 10 mg Documented by: Admin: 07/18/19 17:59 Dose: 10 mg Documented by: Admin: 07/18/19 11:47 Dose: 10 mg Documented by: Admin: 07/18/19 05:34 Dose: 10 mg Documented by: Admin: 07/17/19 23:49 Dose: 10 mg Documented by: Admin: 07/17/19 17:01 Dose: 10 mg Documented by: Admin: 07/17/19 13:19 Dose: 10 mg Documented by: Admin: 07/17/19 06:31 Dose: 10 mg Documented by: Admin: 07/16/19 23:30 Dose: 10 mg Documented by: Admin: 07/16/19 17:08 Dose: 10 mg Documented by: Admin: 07/16/19 12:32 Dose: 10 mg Documented by: Admin: 07/16/19 05:18 Dose: 10 mg Documented by: Admin: 07/15/19 23:21 Dose: 10 mg Documented by: Admin: 07/15/19 17:42 Dose: 10 mg Documented by: Admin: 07/15/19 11:50 Dose: 10 mg Documented by: Admin: 07/15/19 05:28 Dose: 10 mg Documented by: Admin: 07/14/19 23:29 Dose: 10 mg Documented by: Admin: 07/14/19 17:39 Dose: 10 mg Documented by: Admin: 07/14/19 11:45 Dose: 10 mg Documented by: Admin: 07/14/19 05:20 Dose: 10 mg Documented by: Admin: 07/13/19 23:18 Dose: 10 mg Documented by: Admin: 07/13/19 17:47 Dose: 10 mg Documented by: Admin: 07/13/19 11:54 Dose: 10 mg Documented by: Admin: 07/13/19 05:50 Dose: 10 mg Documented by: Admin: 07/13/19 00:29 Dose: 10 mg Documented by: Admin: 07/12/19 19:03 Dose: 10 mg Documented by: MAG Pantoprazole Sodium (Protonix) 40 mg IV BIDAC [facility] Admin: 07/21/19 07:56 Dose: 40 mg Documented by: [email or web address] Admin: 07/20/19 16:39 Dose: 40 mg Documented by: Admin: 07/20/19 07:11 Dose: 40 mg Documented by: Admin: 07/19/19 16:28 Dose: 40 mg Documented by: Admin: 07/19/19 08:24 Dose: 40 mg Documented by: Admin: 07/18/19 17:59 Dose: 40 mg Documented by: Admin: 07/18/19 07:25 Dose: 40 mg Documented by: Admin: 07/17/19 17:01 Dose: 40 mg Documented by: Admin: 07/17/19 07:19 Dose: 40 mg Documented by: Admin: 07/16/19 17:07 Dose: 40 mg Documented by: Admin: 07/16/19 07:29 Dose: 40 mg Documented by: Admin: 07/15/19 17:42 Dose: 40 mg Documented by: Admin: 07/15/19 07:10 Dose: 40 mg Documented by: Admin: 07/14/19 17:39 Dose: 40 mg Documented by: Admin: 07/14/19 06:49 Dose: 40 mg Documented by: Admin: 07/13/19 17:46 Dose: 40 mg Documented by: Admin: 07/13/19 07:11 Dose: 40 mg Documented by: NICOLE Sodium Chloride (Saline Flush) 10 ml IV Q8 [facility] Admin: 07/21/19 05:55 Dose: 10 ml Documented by: Admin: 07/20/19 20:14 Dose: 10 ml Documented by: Admin: 07/20/19 14:47 Dose: 10 ml Documented by: Admin: 07/20/19 05:56 Dose: 10 ml Documented by: Admin: 07/19/19 23:57 Dose: 10 ml Documented by: Admin: 07/19/19 15:16 Dose: 10 ml Documented by: Admin: 07/19/19 05:57 Dose: 10 ml Documented by: Admin: 07/18/19 21:34 Dose: 10 ml Documented by: Admin: 07/18/19 16:36 Dose: 10 ml Documented by: Admin: 07/18/19 05:34 Dose: Not Given Documented by: Admin: 07/17/19 23:06 Dose: Not Given Documented by: Admin: 07/17/19 14:24 Dose: Not Given Documented by: Admin: 07/17/19 06:22 Dose: 10 ml Documented by: Admin: 07/16/19 23:05 Dose: Not Given Documented by: Admin: 07/16/19 14:38 Dose: 10 ml Documented by: Admin: 07/16/19 05:18 Dose: 10 ml Documented by: Admin: 07/15/19 22:10 Dose: Not Given Documented by: Admin: 07/15/19 19:05 Dose: 10 ml Documented by: Admin: 07/15/19 15:23 Dose: 10 ml Documented by: Admin: 07/15/19 07:10 Dose: 10 ml Documented by: Admin: 07/14/19 23:07 Dose: Not Given Documented by: Admin: 07/14/19 15:53 Dose: 10 ml Documented by: Admin: 07/14/19 05:21 Dose: 10 ml Documented by: Admin: 07/13/19 21:39 Dose: Not Given Documented by: Admin: 07/13/19 19:23 Dose: 10 ml Documented by: Admin: 07/13/19 14:14 Dose: 10 ml Documented by: Admin: 07/13/19 05:51 Dose: Not Given Documented by: Admin: 07/12/19 22:24 Dose: Not Given Documented by: Admin: 07/12/19 19:03 Dose: 10 ml Documented by: MAG Shift Summary 07/21/19 04:59 Shift Summary by Antwon Vasquez Pt has rested fairly well again tonight. He has denied ABD pain all shift. No nausea again tonight. Saline lock to his LT hand - flushed & patent. Midline ADB incision well approx w/ angelique in place - open to air. RLQ ABD old RAPHAEL sites x2 - open to air. Ostomy LLQ no Bm - flatus emptied in the stephanie. VS - B/P remains slightly elevated - Apresoline 10mg IV given x2 - last @ 0040 - all else WNl on R.A.. He is up AMB to & from [facility] (I) - did not AMB in [place]. Pt is A&Ox4, calm, pleasant, & cooperative. He will D/C to home later today. Initialized on 07/21/19 04:59 - END OF NOTE
[2019-07-21] MEDS: LEVOFLOXACIN 750 MG/150 ML BAG IV SCH (11:32)
[2019-07-21] MEDS ORDERED: metFORMIN 500 MG TABLET PO SCH (17:30)
[2019-07-21] MEDS ORDERED: SIMVASTATIN 40 MG TABLET PO SCH (21:00)
[2019-07-22] MEDS ORDERED: OMEPRAZOLE 20 MG CAPSULE PO SCH (07:30)
[2019-07-22] MEDS ORDERED: MULTIVIT,THER IRON,CA,FA & MIN 1 TABLET PO SCH (09:00)
[2019-07-22] MEDS ORDERED: ALLOPURINOL 300 MG TABLET PO SCH (09:00)
[2019-07-22] MEDS ORDERED: VITAMIN D3 1,000 UNIT TABLET PO SCH (09:00)
[2019-07-22] MEDS ORDERED: HYDROCHLOROTHIAZIDE 12.5 MG PO SCH (09:00)
[2019-07-22] MEDS ORDERED: VITAMIN B COMPLEX 1 CAPSULE PO SCH (09:00)
[2019-07-22] MEDS ORDERED: [UNRECOGNIZED DRUG - OTHER] PO SCH (09:00)
--- NOTE | 2019-10-10 14:26 | Operative Note ---
DATE OF OPERATION: 07/12/2019 PREOPERATIVE DIAGNOSIS: Colorectal anastomotic leak. POSTOPERATIVE DIAGNOSIS: Colorectal anastomotic leak. PROCEDURE: Laparotomy with takedown of anastomosis and end colostomy. SURGEON: Gladys Hewitt M.D. FINDINGS: Leak of the anterior aspect of the anastomosis with the leak confined to the pelvis. INDICATION: Patient is status post sigmoid resection with colorectal anastomosis. He developed abdominal pain, leukocytosis with leakage of feculent material through his drain. He is being returned to the OR for takedown of the anastomosis and end colostomy. DESCRIPTION OF PROCEDURE: Under general anesthesia, the patient's abdomen was prepped and draped in a sterile field. The drains were left in place. [place] were removed from the midline incision, and upon entering the peritoneal cavity there was no overt peritoneal contamination. Dissection was carried down along the inferior aspect of the incision over the bladder. In the pelvis, there was obvious feculent material. This was irrigated down to the anastomosis. Inspection of the anastomosis revealed that the anterior aspect of the anastomosis next to the bladder was disrupted with a free leak. Copious irrigation was carried out. Using Metzenbaum scissors, the anastomosis was taken down. The end of the sigmoid was then stapled using a VINCENT 60 stapler. The rectal stump was inspected and though the mucosa appeared to be intact, the suture had pulled through, suggesting that the tissue was not stable enough to hold the suture. Copious irrigation was carried out, and the more proximal aspect of the rectal stump was excised to make sure that there was no covert infection. The rectal stump was then oversewn in two layers using two layers of 2-0 Vicryl in an inverting pattern. The drains were placed back in the pelvis. The upper abdomen was inspected, and there was no contamination in the upper abdomen. The pelvis was irrigated once more with the bacitracin solution. Sponge, needle, instrument, and blade counts were verified as correct. Fascia and peritoneum were closed with a running #1 Prolene. Subcutaneous tissue was irrigated and bacitracin powder was placed in the subcutaneous tissue. Subcutaneous tissue was then closed with 2-0 Monocryl. Skin was closed with angelique. Drains were left intact. Tegaderm dressing was placed. The patient was awakened from anesthesia, transferred to a bed, and taken to the postanesthetic care unit in stable, satisfactory condition. LCS:justina Job ID: [id number] Doc ID: [id number] Gladys Hewitt M.D.
== END 2019-07-21 12:20 | disposition home health service (06) | DRG 330 ==
LOC: MEDSUR 07:26
PROVIDERS: ADMIT Family Medicine Adult Medicine; ATTEND Specialist

== ENCOUNTER 2019-11-21 05:01 | Inpatient (IN) ==
--- NOTE | 2019-11-15 15:39 | XRay Report ---
INDICATION: Pre-Op TECHNIQUE: PA and lateral upright chest x-ray COMPARISON: None FINDINGS: Lungs: Lungs are negative. No focal pulmonary parenchymal infiltrate or mass Heart, vascular: No significant cardiomegaly. Pulmonary vascularity is normal. No pulmonary edema or pulmonary congestion Mediastinum, yashira: No mediastinal widening. No hilar mass Pleura:No pleural fluid. No pleural-based mass or calcification Thoracic spine, ribs: No thoracic compression fracture. Ribs are negative. No fracture. No lytic lesion IMPRESSION: 1. Negative PA and lateral chest x-ray 2. No interval change since 07/05/2019 Interpreted and Authenticated by: Florin Moreno 11/15/19
[2019-11-15 17:52] LABS: Basophils # (Auto) 0.04 K/mcL (0.00-0.30); Basophils % (Auto) 0.5 % (0.0-2.0); Eosinophils % (Auto) 1.2 % (0.0-7.0); Granulocytes % (Auto) 53.3 % (38.0-78.0); Hematocrit 37.7 % (40.1-51.0); Hemoglobin 11.8 g/dL (13.7-17.5); Lymphocytes # (Auto) 2.89 K/mcL (1.50-4.80); Lymphocytes % (Auto) 34.1 % (15.5-49.0); Mean Cell Volume 69.4 fL (80.0-100.0); Mean Corpuscular HGB Conc 31.3 g/dL (31.0-36.0); Mean Platelet Volume 10.1 fL (7.4-10.4); Monocytes # (Auto) 0.92 K/mcL (0.10-0.90); Monocytes % (Auto) 10.9 % (1.0-12.0); Platelet Count 278 K/mcL (140-440); RBC 5.43 M/mcL (4.63-6.08); Red Cell Distribution Width 20.2 % (11.5-14.5); WBC 8.5 K/mcL (4.50-11.00)
[2019-11-15 17:57] LABS: Prothrombin Time 13.9 sec (11.9-14.5)
[2019-11-15 18:00] LABS: ALT/SGPT 10 U/l (0-40); AST/SGOT 14 U/l (0-37); Albumin 4.7 gm/dL (3.2-5.2); Albumin/Globulin Ratio 1.6 (1.0-2.3); Alkaline Phosphatase 76 U/L (39-117); Bilirubin,Total 0.3 mg/dL (0.0-1.0); Blood Urea Nitrogen 16 mg/dl (8-23); Calcium 10.2 mg/dl (8.6-10.4); Carbon Dioxide 25 mmol/L (22-30); Globulin 2.9 gm/dL (2.2-3.7); Glomerular Filtration Rate 58; Glucose 98 mg/dL (70-105)
[2019-11-15 18:01] LABS: Chloride 95 mmol/L (96-108)
[~2019-11-21 05:01] MED LIST changes: +IPRATROPIUM/ALBUTEROL 3 ML AMPUL.NEB NEB PRN; +SCOPOLAMINE 1 PATCH PATCH TOPICAL PRN; -ceFAZolin 2 GM in DEXTROSE 5% IN WATER 50 ML IV SCH; -metroNIDAZOLE 500 MG/100 ML BAG IV SCH
[2019-11-21] MEDS ORDERED: metroNIDAZOLE 500 MG/100 ML BAG IV SCH (06:00)
[2019-11-21] MEDS ORDERED: CEFEPIME 2 GM VIAL IV SCH (06:00)
[2019-11-21 07:07] LABS: Estimated Average Glucose(eAG) 140 mg/dL; Hemoglobin A1C 6.5 % HGB (4.0-6.0)
[2019-11-21] MEDS ORDERED: ONDANSETRON 4 MG/2 ML VIAL IV ONE (07:32)
[2019-11-21] MEDS ORDERED: PROPOFOL 200 MG/20 ML VIAL IV ONE (07:32)
[2019-11-21] MEDS ORDERED: GLYCOPYRROLATE 0.2 MG/ML VIAL IV ONE (07:32)
[2019-11-21] MEDS ORDERED: PHENYLEPHRINE 10 MG/ML VIAL IV ONE (07:32)
[2019-11-21] MEDS ORDERED: fentaNYL 100 MCG/2 ML VIAL IV ONE (07:32)
[2019-11-21] MEDS ORDERED: DEXAMETHASONE 10 MG/ML VIAL IV ONE (07:32)
[2019-11-21] MEDS ORDERED: HYDROmorphone 1 MG/ML SYRINGE IV ONE (07:32)
[2019-11-21] MEDS ORDERED: ROCURONIUM 10 MG/ML ML IV ONE (07:32)
[2019-11-21] MEDS ORDERED: KETAMINE 100 MG/ML ML IV ONE (07:32)
[2019-11-21] MEDS ORDERED: LIDOCAINE HCL/PF 100 MG/5 ML SYRINGE IV ONE (07:32)
[2019-11-21] MEDS ORDERED: MIDAZOLAM 2 MG/2 ML VIAL IV ONE (07:32)
[2019-11-21] MEDS ORDERED: CEFEPIME 2 GM VIAL IV ONE (10:45)
[2019-11-21] MEDS ORDERED: IPRATROPIUM/ALBUTEROL 3 ML AMPUL.NEB NEB PRN (11:10)
[2019-11-21] MEDS ORDERED: fentaNYL 100 MCG/2 ML VIAL IV PRN (11:10)
[2019-11-21] MEDS ORDERED: HYDROmorphone 0.5 MG/0.5 ML SYRINGE IV PRN (11:10)
[2019-11-21] MEDS ORDERED: ACETAMINOPHEN 1,000 MG/100 ML BOTTLE IV ONE (11:10)
[2019-11-21] MEDS ORDERED: MEPERIDINE 25 MG/ML SYRINGE IV PRN (11:10)
[2019-11-21] MEDS ORDERED: KETOROLAC 15 MG/ML VIAL IV PRN (11:10)
[2019-11-21] MEDS ORDERED: ONDANSETRON 4 MG/2 ML VIAL IV PRN ×2 (11:10→12:14)
[2019-11-21] MEDS ORDERED: LACTATED RINGERS 1,000 ML IV SCH (11:15)
--- NOTE | 2019-11-21 12:08 | Brief Operative Note ---
Brief Operative Note Date of procedure: 11/21/19 Pre-op diagnosis: colostomy status Post-op diagnosis: other (colostomy status) Procedure: COLOSTOMY TAKEDOWN Grafts/Implants: No (#10 NADYA DRAIN) Anesthesia: GETA Findings: EXTENSIVE PELVIC ADHESIONS CONTRACTED THICKENED RECTAL STUMP Complications: none Surgeon: Gladys Hewitt Estimated blood loss (cc): 50 Specimens Removed/Pathology: other (STOMA END) Condition: stable Disposition: PACU
[2019-11-21] MEDS: 0.9 % SODIUM CHLORIDE 1,000 ML IV SCH ×2 (13:36→21:53)
[2019-11-21] MEDS: HYDROmorphone 1 MG/ML SYRINGE IV PRN ×3 (13:54→22:30)
[2019-11-21] MEDS: metroNIDAZOLE 500 MG/100 ML BAG IV SCH ×2 (15:11→22:35)
[2019-11-21] MEDS: CEFEPIME 2 GM VIAL IV SCH (22:30)
[2019-11-22] MEDS: HYDROmorphone 1 MG/ML SYRINGE IV PRN ×5 (04:26→23:35)
[2019-11-22] MEDS: 0.9 % SODIUM CHLORIDE 1,000 ML IV SCH ×4 (06:05→19:32)
[2019-11-22] MEDS: CEFEPIME 2 GM VIAL IV SCH ×3 (06:05→22:08)
[2019-11-22] MEDS: metroNIDAZOLE 500 MG/100 ML BAG IV SCH ×3 (06:10→22:08)
--- NOTE | 2019-11-22 16:51 | General Surgery Progress Note ---
SUBJECTIVE Subjective Patient information: Note initiated : 11/22/19 at 4:46 pm Service Date, if different from initiated Date: [] Patient: Tarun Alvarez 74 y/o M admitted on 11/21/19 for Colostomy Takedown. Chief Complaint: [] patient is doing well. He states his pain is controlled. He denies having nausea. He has not had flatus. Interval history: Narrative: Constitutional Vitals: Vital Signs Temp Pulse Resp BP Pulse Ox 97.8 F 73 14 146/77 97 11/22/19 12:00 11/22/19 12:00 11/22/19 12:00 11/22/19 12:00 11/22/19 12:00 Period Temp Pulse Resp BP Sys/Garcia Pulse Ox Last 24 Hr 97.8 F-99.1 F 65-89 14-14 125-149/70-88 95-98 Intake and Output 11/22/19 11/22/19 11/22/19 05:59 13:59 21:59 Intake Total 2045 041 4151 Output Total 1450 1655 Balance -250 180 -655 Weight 226 lb 4.8 oz Patient Weight 11/23/19 05:59 Weight 226 lb 4.8 oz Intake & Output: Intake & Output 11/22/19 11/22/19 11/22/19 05:59 13:59 21:59 Intake Total 9597 845 3002 Output Total 1450 1655 Balance -250 180 -655 Weight 226 lb 4.8 oz Intake: IV 8010 307 3332 Sodium Chloride 0.9% 1,000 ml @ 1000 1000 125 mls/hr IV .Q8H [facility] Rx#: [id number] Oral 100 80 Output: Gastric Drainage 625 1200 Right Nare NG/OG 625 1200 Drainage 25 5 Right Lower Abdomen 25 5 Urine Catheter Amount 800 450 Other: Urine Appearance Sediment Sediment Uretheral (Lamb) Clear Clear Urine Color Yellow Brown Dark Olamide Green Uretheral (Lamb) Bright Yellow Bright Yellow Urine Odor Normal Normal Uretheral (Lamb) Normal Normal Head Head exam: Present atraumatic and normocephalic Eye Eye exam: Present EOMI Pupils: Present normal accommodation and PERRL ENT ENT exam: Present mucous membranes moist, normal exam and normal oropharynx Neck Neck exam: Present full ROM and normal inspection; Absent lymphadenopathy, tenderness and thyromegaly Respiratory Respiratory exam: Present normal respiratory exam and CTAB; Absent rales, rhonchi and wheezes Cardiovascular Cardiovascular exam: Present normal rate and rhythm, RRR, +S1, +S2 and systolic murmur (grade 2 systolic ejection murmur); Absent gallop and JVD GI/Abdominal GI/Abdominal exam: Present normal bowel sounds, distended and hypoactive bowel sounds; Absent mass Extremities Exam Extremities exam: Present normal capillary refill and normal inspection; Absent full ROM, pedal edema and tenderness Neurological Exam Neurological exam: Present alert, CN II-XII intact and oriented X3; Absent motor sensory deficit Psychiatric Psychiatric exam: Present normal affect and normal mood Skin Skin exam: Absent cyanosis, rash and urticaria A/P Assessment and plan (1) Status post colostomy takedown: Assessment and plan: patient is going well; he is afebrile and his pain is controlled. Metoclopramide started every 6 hours Status: Acute Narrative A/P Narrative: Narrative: Time Spent With Patient Time: Total time spent is greater than 50% in coordination of care (as documented) at patient's floor/unit and/or counseling patient:
[2019-11-22] MEDS: METOCLOPRAMIDE 10 MG/2 ML VIAL IV SCH ×2 (17:51→23:35)
[2019-11-23] MEDS: HYDROmorphone 1 MG/ML SYRINGE IV PRN ×3 (05:48→20:29)
[2019-11-23] MEDS: metroNIDAZOLE 500 MG/100 ML BAG IV SCH ×3 (05:49→20:28)
[2019-11-23] MEDS: CEFEPIME 2 GM VIAL IV SCH ×3 (05:52→20:29)
[2019-11-23] MEDS: 0.9 % SODIUM CHLORIDE 1,000 ML IV SCH ×3 (05:53→20:28)
[2019-11-23] MEDS: METOCLOPRAMIDE 10 MG/2 ML VIAL IV SCH ×4 (06:01→23:44)
[2019-11-23 07:44] LABS: Basophils # (Auto) 0.03 K/mcL (0.00-0.30); Basophils % (Auto) 0.2 % (0.0-2.0); Eosinophils # (Auto) 0.04 K/mcL (0.00-0.70); Eosinophils % (Auto) 0.3 % (0.0-7.0); Granulocytes % (Auto) 77.8 % (38.0-78.0); Hemoglobin 10.1 g/dL (13.7-17.5); Lymphocytes # (Auto) 1.55 K/mcL (1.50-4.80); Lymphocytes % (Auto) 10.3 % (15.5-49.0); Mean Cell Volume 68.5 fL (80.0-100.0); Mean Corpuscular HGB Conc 31.6 g/dL (31.0-36.0); Mean Platelet Volume 9.9 fL (7.4-10.4); Monocytes # (Auto) 1.72 K/mcL (0.10-0.90); Monocytes % (Auto) 11.4 % (1.0-12.0); Platelet Count 222 K/mcL (140-440); RBC 4.67 M/mcL (4.63-6.08); Red Cell Distribution Width 20.4 % (11.5-14.5)
[2019-11-23 08:06] LABS: ALT/SGPT 9 U/l (0-40); AST/SGOT 11 U/l (0-37); Albumin 3.5 gm/dL (3.2-5.2); Albumin/Globulin Ratio 1.3 (1.0-2.3); Alkaline Phosphatase 59 U/L (39-117); Bilirubin,Direct < 0.2 mg/dL (0.0-0.3); Bilirubin,Total 0.5 mg/dL (0.0-1.0); Blood Urea Nitrogen 12 mg/dl (8-23); Calcium 8.8 mg/dl (8.6-10.4); Carbon Dioxide 23 mmol/L (22-30); Chloride 99 mmol/L (96-108); Globulin 2.7 gm/dL (2.2-3.7); Glomerular Filtration Rate 87; Glucose 114 mg/dL (70-105); Lactate Dehydrogenase 152 U/L (94-250); Triglycerides 78 mg/dl (<150); Uric Acid 4.9 mg/dL (2.5-8.0)
[2019-11-23 08:15] LABS: Phosphorous 2.3 mg/dL (2.7-4.5)
--- NOTE | 2019-11-23 10:58 | General Surgery Progress Note ---
SUBJECTIVE Subjective Patient information: Note initiated : 11/23/19 at 10:54 am Service Date, if different from initiated Date: [] Patient: Tarun Alvarez 74 y/o M admitted on 11/21/19 for Colostomy Takedown. Chief Complaint: [] Interval history: Narrative:patient states that he feels better. He does not have any major abdominal pain. He denies nausea. He has not had flatus so far. He denies abdominal distention. Vital signs have been stable and he's afebrile. White blood count 15, hemoglobin 10.1, hematocrit 32, potassium 3.4, BUN 12, creatinine 0.8, phosphorus 2.3. Constitutional Vitals: Vital Signs Temp Pulse Resp BP Pulse Ox 98.9 F 78 16 152/87 93 11/23/19 08:00 11/23/19 08:00 11/23/19 08:00 11/23/19 08:00 11/23/19 08:00 Period Temp Pulse Resp BP Sys/Garcia Pulse Ox Last 24 Hr 97.8 F-99.2 F 73-79 14-20 141-153/77-87 92-97 Intake and Output 11/22/19 11/23/19 11/23/19 21:59 05:59 13:59 Intake Total 1660 1185 Output Total 1655 2160 650 Balance 5 -975 -650 Weight 226 lb 9 oz Intake & Output: Intake & Output 11/22/19 11/23/19 11/23/19 21:59 05:59 13:59 Intake Total 1660 1185 Output Total 1655 2160 650 Balance 5 -975 -650 Weight 226 lb 9 oz Intake: IV 1660 1100 Sodium Chloride 0.9% 1,000 ml @ 1560 1000 125 mls/hr IV .Q8H [facility] Rx#: [id number] Oral 85 Output: Gastric Drainage 1200 1200 Right Nare NG/OG 1200 1200 Drainage 5 10 Right Lower Abdomen 5 10 Urine Catheter Amount 450 950 650 Other: Urine Appearance Clear Clear Clear Uretheral (Lamb) Clear Clear Urine Color Pale Dark Yellow Dark Yellow Bright Yellow Dark Olamide Uretheral (Lamb) Bright Yellow Bright Yellow Urine Odor Normal Strong Normal Uretheral (Lamb) Normal Normal Stool Color Yellow Stool Consistency Watery Head Head exam: Present atraumatic and normocephalic Eye Eye exam: Present EOMI Pupils: Present normal accommodation and PERRL ENT ENT exam: Present mucous membranes moist, normal exam and normal oropharynx Neck Neck exam: Present full ROM and normal inspection; Absent lymphadenopathy, tenderness and thyromegaly Respiratory Respiratory exam: Present normal respiratory exam and CTAB; Absent rales, rhonchi and wheezes Cardiovascular Cardiovascular exam: Present normal rate and rhythm, RRR, +S1, +S2 and systolic murmur (grade 2 systolic ejection murmur); Absent gallop and JVD GI/Abdominal GI/Abdominal exam: Present normal bowel sounds, distended and hypoactive bowel sounds; Absent mass Additional comments: abdomen is nondistended; incision looks good; a few active bowel sounds Extremities Exam Extremities exam: Present normal capillary refill and normal inspection; Absent full ROM, pedal edema and tenderness Neurological Exam Neurological exam: Present alert, CN II-XII intact and oriented X3; Absent motor sensory deficit Psychiatric Psychiatric exam: Present normal affect and normal mood Skin Skin exam: Absent cyanosis, rash and urticaria A/P Assessment and plan (1) Status post colostomy takedown: Status: Acute Comment: patient is having good postoperative course. Will continue present therapy. Potassium phosphate will be replenished Narrative A/P Narrative: Narrative: Time Spent With Patient Time: Total time spent is greater than 50% in coordination of care (as documented) at patient's floor/unit and/or counseling patient:
[2019-11-23] MEDS: POTASSIUM PHOSPHATE 40 MEQ in DEXTROSE 5% IN WATER 500 ML IV SCH ×2 (12:20→16:29)
[2019-11-24] MEDS: 0.9 % SODIUM CHLORIDE 1,000 ML IV SCH ×3 (03:53→20:52)
[2019-11-24] MEDS: HYDROmorphone 1 MG/ML SYRINGE IV PRN ×2 (03:53→19:07)
[2019-11-24] MEDS: METOCLOPRAMIDE 10 MG/2 ML VIAL IV SCH ×4 (05:47→23:25)
[2019-11-24] MEDS: CEFEPIME 2 GM VIAL IV SCH ×3 (05:47→20:53)
[2019-11-24] MEDS: metroNIDAZOLE 500 MG/100 ML BAG IV SCH ×3 (05:47→20:53)
[2019-11-24 06:57] LABS: Basophils # (Auto) 0.04 K/mcL (0.00-0.30); Basophils % (Auto) 0.3 % (0.0-2.0); Eosinophils # (Auto) 0.17 K/mcL (0.00-0.70); Eosinophils % (Auto) 1.4 % (0.0-7.0); Granulocytes % (Auto) 75.4 % (38.0-78.0); Hematocrit 33.6 % (40.1-51.0); Hemoglobin 10.6 g/dL (13.7-17.5); Lymphocytes % (Auto) 11.4 % (15.5-49.0); Mean Cell Volume 68.9 fL (80.0-100.0); Mean Corpuscular HGB Conc 31.5 g/dL (31.0-36.0); Mean Platelet Volume 10.1 fL (7.4-10.4); Monocytes # (Auto) 1.41 K/mcL (0.10-0.90); Monocytes % (Auto) 11.5 % (1.0-12.0); Platelet Count 240 K/mcL (140-440); RBC 4.88 M/mcL (4.63-6.08); Red Cell Distribution Width 20.6 % (11.5-14.5); WBC 12.2 K/mcL (4.50-11.00)
[2019-11-24 07:14] LABS: ALT/SGPT 8 U/l (0-40); AST/SGOT 14 U/l (0-37); Albumin 3.4 gm/dL (3.2-5.2); Albumin/Globulin Ratio 1.1 (1.0-2.3); Alkaline Phosphatase 69 U/L (39-117); Bilirubin,Direct < 0.2 mg/dL (0.0-0.3); Bilirubin,Total 0.6 mg/dL (0.0-1.0); Blood Urea Nitrogen 12 mg/dl (8-23); Calcium 9.2 mg/dl (8.6-10.4); Carbon Dioxide 26 mmol/L (22-30); Globulin 3.1 gm/dL (2.2-3.7); Glomerular Filtration Rate 83; Glucose 121 mg/dL (70-105); Lactate Dehydrogenase 188 U/L (94-250); Triglycerides 81 mg/dl (<150)
[2019-11-24 07:16] LABS: Chloride 95 mmol/L (96-108); Phosphorous 3.1 mg/dL (2.7-4.5)
--- NOTE | 2019-11-24 11:41 | General Surgery Progress Note ---
SUBJECTIVE Subjective Patient information: Note initiated : 11/24/19 at 11:38 am Service Date, if different from initiated Date: [] Patient: Tarun Alvarez 74 y/o M admitted on 11/21/19 for Colostomy Takedown. Chief Complaint: [] Interval history: Narrative:patient has done well throughout the evening. He has had 2 episodes of active flatus. He denies nausea. White blood count 12.2, hemoglobin 10.6, hematocrit 33.6. RAPHAEL drainage is serous Constitutional Vitals: Vital Signs Temp Pulse Resp BP Pulse Ox 98.5 F 79 20 151/87 93 11/24/19 08:00 11/24/19 08:00 11/24/19 08:00 11/24/19 08:00 11/24/19 08:00 Period Temp Pulse Resp BP Sys/Garcia Pulse Ox Last 24 Hr 98.4 F-99.3 F 72-82 16-20 149-165/84-92 92-96 Intake and Output 11/23/19 11/24/19 11/24/19 21:59 05:59 13:59 Intake Total 809 927 Output Total 600 2305 425 Balance 209 -1378 -425 Weight 216 lb Intake & Output: Intake & Output 11/23/19 11/24/19 11/24/19 21:59 05:59 13:59 Intake Total 809 927 Output Total 600 2305 425 Balance 209 -1378 -425 Weight 216 lb Intake: IV 709 927 Sodium Chloride 0.9% 1,000 ml @ 927 125 mls/hr IV .Q8H [facility] Rx#: [id number] Potassium Phosphate 40 Meq In 509 Dextrose 5% in Water 500 ml @ 127.273 mls/hr IV Q4H [facility] Rx#: [id number] Oral 100 Output: Gastric Drainage 1800 Right Nare NG/OG 1800 Drainage 5 Right Lower Abdomen 5 Void Amount 600 500 425 Other: Urine Appearance Clear Clear Clear Urine Color Dark Yellow Bright Yellow Light Olamide Urine Odor Normal Strong Normal Stool Color Yellow Stool Consistency Watery Head Head exam: Present atraumatic and normocephalic Eye Eye exam: Present EOMI Pupils: Present normal accommodation and PERRL ENT ENT exam: Present mucous membranes moist, normal exam and normal oropharynx Neck Neck exam: Present full ROM and normal inspection; Absent lymphadenopathy, tenderness and thyromegaly Respiratory Respiratory exam: Present normal respiratory exam and CTAB; Absent rales, rhonchi and wheezes Cardiovascular Cardiovascular exam: Present normal rate and rhythm, RRR, +S1, +S2 and systolic murmur (grade 2 systolic ejection murmur); Absent gallop and JVD GI/Abdominal GI/Abdominal exam: Present normal bowel sounds, distended and hypoactive bowel sounds; Absent mass Additional comments: abdomen is nondistended; incision looks good; a few active bowel sounds Extremities Exam Extremities exam: Present normal capillary refill and normal inspection; Absent full ROM, pedal edema and tenderness Neurological Exam Neurological exam: Present alert, CN II-XII intact and oriented X3; Absent motor sensory deficit Psychiatric Psychiatric exam: Present normal affect and normal mood Skin Skin exam: Absent cyanosis, rash and urticaria A/P Assessment and plan (1) Status post colostomy takedown: Status: Acute Comment: patient is having good postoperative course. Clamp NG tube May have ice chips and popsicles Probable start clear liquids tomorrow Narrative A/P Narrative: Narrative: Time Spent With Patient Time: Total time spent is greater than 50% in coordination of care (as documented) at patient's floor/unit and/or counseling patient:
[2019-11-24] MEDS ORDERED: ACETAMINOPHEN 650 MG/65 ML BOTTLE IV PRN (22:06)
[2019-11-24] MEDS ORDERED: ACETAMINOPHEN 1,000 MG/100 ML BOTTLE IV ONE (22:20)
[2019-11-25] MEDS: METOCLOPRAMIDE 10 MG/2 ML VIAL IV SCH ×3 (05:37→17:42)
[2019-11-25] MEDS: metroNIDAZOLE 500 MG/100 ML BAG IV SCH ×3 (05:38→21:11)
[2019-11-25] MEDS: CEFEPIME 2 GM VIAL IV SCH ×3 (05:38→21:11)
[2019-11-25] MEDS: 0.9 % SODIUM CHLORIDE 1,000 ML IV SCH ×4 (05:50→18:32)
[2019-11-25 06:57] LABS: Basophils # (Auto) 0.04 K/mcL (0.00-0.30); Basophils % (Auto) 0.4 % (0.0-2.0); Eosinophils # (Auto) 0.38 K/mcL (0.00-0.70); Eosinophils % (Auto) 3.7 % (0.0-7.0); Granulocytes % (Auto) 66.6 % (38.0-78.0); Hematocrit 33.2 % (40.1-51.0); Hemoglobin 10.6 g/dL (13.7-17.5); Lymphocytes # (Auto) 1.74 K/mcL (1.50-4.80); Lymphocytes % (Auto) 16.9 % (15.5-49.0); Mean Cell Volume 68.6 fL (80.0-100.0); Mean Corpuscular HGB Conc 31.9 g/dL (31.0-36.0); Mean Platelet Volume 9.9 fL (7.4-10.4); Monocytes # (Auto) 1.27 K/mcL (0.10-0.90); Monocytes % (Auto) 12.4 % (1.0-12.0); Platelet Count 248 K/mcL (140-440); RBC 4.84 M/mcL (4.63-6.08); Red Cell Distribution Width 20.6 % (11.5-14.5); WBC 10.3 K/mcL (4.50-11.00)
[2019-11-25 07:18] LABS: Bilirubin,Direct < 0.2 mg/dL (0.0-0.3); Chloride 101 mmol/L (96-108)
[2019-11-25 07:21] LABS: ALT/SGPT 9 U/l (0-40); AST/SGOT 21 U/l (0-37); Albumin 3.2 gm/dL (3.2-5.2); Alkaline Phosphatase 68 U/L (39-117); Bilirubin,Total 0.6 mg/dL (0.0-1.0); Blood Urea Nitrogen 13 mg/dl (8-23); Calcium 8.9 mg/dl (8.6-10.4); Carbon Dioxide 19 mmol/L (22-30); Globulin 3.1 gm/dL (2.2-3.7); Glomerular Filtration Rate 83; Glucose 91 mg/dL (70-105); Lactate Dehydrogenase 283 U/L (94-250); Triglycerides 82 mg/dl (<150); Uric Acid 5.1 mg/dL (2.5-8.0)
--- NOTE | 2019-11-25 14:43 | General Surgery Progress Note ---
SUBJECTIVE Subjective Patient information: Note initiated : 11/25/19 at 2:40 pm Service Date, if different from initiated Date: [] Patient: Tarun Alvarez 74 y/o M admitted on 11/21/19 for Colostomy Takedown. Chief Complaint: [] Interval history: Narrative: patient is doing well. He has had extensive flatus and has had bowel movements. He denies nausea. White count 10.3, hemoglobin 10.6, hematocrit 33.2, potassium 3.5, BUN 13, creatinine 0.9. He denies abdominal pain. Constitutional Vitals: Vital Signs Temp Pulse Resp BP Pulse Ox 99.1 F H 75 20 151/89 96 11/25/19 12:00 11/25/19 07:59 11/25/19 12:00 11/25/19 12:00 11/25/19 12:00 Period Temp Pulse Resp BP Sys/Garcia Pulse Ox Last 24 Hr 98.5 F-101.2 F 72-80 18-20 151-175/86-94 91-96 Intake and Output 11/25/19 11/25/19 11/25/19 05:59 13:59 21:59 Intake Total 3040 1100 Output Total 1330 485 Balance 1710 615 Intake & Output: Intake & Output 11/25/19 11/25/19 11/25/19 05:59 13:59 21:59 Intake Total 3040 1100 Output Total 1330 485 Balance 1710 615 Intake: IV 1100 Sodium Chloride 0.9% 1,000 ml @ 1000 125 mls/hr IV .Q8H [facility] Rx#: [id number] Oral 240 Tube Feeding 0 IV - Manual Only 2800 Output: Gastric Drainage 200 Right Nare NG/OG 200 Drainage 5 Right Lower Abdomen 5 Void Amount 1125 485 Other: Urine Appearance Clear Clear Urine Color Bright Yellow Light Olamide Urine Odor Strong Strong Head Head exam: Present atraumatic and normocephalic Eye Eye exam: Present EOMI Pupils: Present normal accommodation and PERRL ENT ENT exam: Present mucous membranes moist, normal exam and normal oropharynx Neck Neck exam: Present full ROM and normal inspection; Absent lymphadenopathy, tenderness and thyromegaly Respiratory Respiratory exam: Present normal respiratory exam and CTAB; Absent rales, rhonchi and wheezes Cardiovascular Cardiovascular exam: Present normal rate and rhythm, RRR, +S1, +S2 and systolic murmur (grade 2 systolic ejection murmur); Absent gallop and JVD GI/Abdominal GI/Abdominal exam: Present normal bowel sounds and soft; Absent mass Additional comments: abdomen is nondistended; incision looks good; a few active bowel sounds Extremities Exam Extremities exam: Present normal capillary refill and normal inspection; Absent full ROM, pedal edema and tenderness Neurological Exam Neurological exam: Present alert, CN II-XII intact and oriented X3; Absent motor sensory deficit Psychiatric Psychiatric exam: Present normal affect and normal mood A/P Assessment and plan (1) Status post colostomy takedown: Status: Acute Comment: patient is having good postoperative course. advanced to full liquid diet Saline lock IV Narrative A/P Narrative: Narrative: Time Spent With Patient Time: Total time spent is greater than 50% in coordination of care (as documented) at patient's floor/unit and/or counseling patient:
[2019-11-25] MEDS ORDERED: ZOLPIDEM 5 MG TABLET PO PRN (19:59)
[2019-11-25] MEDS ORDERED: ZOLPIDEM 5 MG TABLET ONE (21:09)
[2019-11-26] MEDS: METOCLOPRAMIDE 10 MG/2 ML VIAL IV SCH ×5 (00:50→23:55)
[2019-11-26] MEDS: 0.9 % SODIUM CHLORIDE 1,000 ML IV SCH ×2 (03:15→13:24)
[2019-11-26] MEDS: CEFEPIME 2 GM VIAL IV SCH ×3 (05:56→21:16)
[2019-11-26] MEDS: metroNIDAZOLE 500 MG/100 ML BAG IV SCH ×3 (05:58→21:16)
[2019-11-26 06:49] LABS: Basophils # (Auto) 0.06 K/mcL (0.00-0.30); Basophils % (Auto) 0.6 % (0.0-2.0); Eosinophils # (Auto) 0.46 K/mcL (0.00-0.70); Eosinophils % (Auto) 4.3 % (0.0-7.0); Granulocytes % (Auto) 68.2 % (38.0-78.0); Hemoglobin 10.1 g/dL (13.7-17.5); Lymphocytes % (Auto) 13.9 % (15.5-49.0); Mean Cell Volume 70.7 fL (80.0-100.0); Mean Corpuscular HGB Conc 30.6 g/dL (31.0-36.0); Mean Platelet Volume 9.8 fL (7.4-10.4); Platelet Count 305 K/mcL (140-440); RBC 4.67 M/mcL (4.63-6.08); Red Cell Distribution Width 20.7 % (11.5-14.5); WBC 10.8 K/mcL (4.50-11.00)
[2019-11-26 07:04] LABS: ALT/SGPT 9 U/l (0-40); AST/SGOT 15 U/l (0-37); Albumin 3.2 gm/dL (3.2-5.2); Albumin/Globulin Ratio 1.1 (1.0-2.3); Alkaline Phosphatase 61 U/L (39-117); Bilirubin,Direct < 0.2 mg/dL (0.0-0.3); Bilirubin,Total 0.5 mg/dL (0.0-1.0); Blood Urea Nitrogen 12 mg/dl (8-23); Calcium 8.7 mg/dl (8.6-10.4); Carbon Dioxide 21 mmol/L (22-30); Chloride 101 mmol/L (96-108); Glomerular Filtration Rate 87; Glucose 99 mg/dL (70-105); Lactate Dehydrogenase 192 U/L (94-250); Phosphorous 2.6 mg/dL (2.7-4.5); Triglycerides 82 mg/dl (<150); Uric Acid 4.9 mg/dL (2.5-8.0)
--- NOTE | 2019-11-26 18:13 | General Surgery Progress Note ---
SUBJECTIVE Subjective Patient information: Note initiated : 11/26/19 at 6:09 pm Service Date, if different from initiated Date: [] Patient: Tarun Alvarez 74 y/o M admitted on 11/21/19 for Colostomy Takedown. Chief Complaint: [] Interval history: Narrative:patient continues to do well. He is having multiple bowel movements and passing flatus. He denies nausea. Potassium 3.3, BUN 12, creatinine 0.8, phosphorus 2.6, white blood count 10.8, hemoglobin 10.1, hematocrit 33. Constitutional Vitals: Vital Signs Temp Pulse Resp BP Pulse Ox 98.2 F 68 18 172/93 97 11/26/19 16:00 11/26/19 16:00 11/26/19 16:00 11/26/19 16:00 11/26/19 16:00 Period Temp Pulse Resp BP Sys/Garcia Pulse Ox Last 24 Hr 98.2 F-99.6 F 68-84 16-24 133-172/70-93 93-97 Intake and Output 11/26/19 11/26/19 11/26/19 05:59 13:59 21:59 Intake Total 1400 1340 735 Output Total 5 200 550 Balance 1395 1140 185 Intake & Output: Intake & Output 11/26/19 11/26/19 11/26/19 05:59 13:59 21:59 Intake Total 1400 1340 735 Output Total 5 200 550 Balance 1395 1140 185 Intake: IV 1100 1100 100 Sodium Chloride 0.9% 1,000 ml @ 1000 1000 125 mls/hr IV .Q8H [facility] Rx#: [id number] Oral 300 240 635 Output: Drainage 5 Right Lower Abdomen 5 Void Amount 0 200 550 Other: Meal Breakfast Lunch Percent of Meal Consumed 50% 75% Feeding Ability Assist with Tray Set Up Independent Urine Color Straw Urine Odor Normal Stool Size Small Stool Color Brown Stool Consistency Loose # Voids 1 # Bowel Movements 1 2 Head Head exam: Present atraumatic and normocephalic Eye Eye exam: Present EOMI Pupils: Present normal accommodation and PERRL ENT ENT exam: Present mucous membranes moist, normal exam and normal oropharynx Neck Neck exam: Present full ROM and normal inspection; Absent lymphadenopathy, tenderness and thyromegaly Respiratory Respiratory exam: Present normal respiratory exam and CTAB; Absent rales, rhonchi and wheezes Cardiovascular Cardiovascular exam: Present normal rate and rhythm, RRR, +S1, +S2 and systolic murmur (grade 2 systolic ejection murmur); Absent gallop and JVD GI/Abdominal GI/Abdominal exam: Present normal bowel sounds, soft and tenderness (mild incisional tenderness) Extremities Exam Extremities exam: Present normal capillary refill and normal inspection; Absent full ROM, pedal edema and tenderness Neurological Exam Neurological exam: Present alert, CN II-XII intact and oriented X3; Absent motor sensory deficit Psychiatric Psychiatric exam: Present normal affect and normal mood Skin Skin exam: Absent cyanosis, rash and urticaria A/P Assessment and plan (1) Status post colostomy takedown: Status: Acute Comment: patient is having good postoperative course. GI soft diet Saline lock IV Narrative A/P Narrative: Narrative: Time Spent With Patient Time: Total time spent is greater than 50% in coordination of care (as documented) at patient's floor/unit and/or counseling patient:
[2019-11-26] MEDS ORDERED: ZOLPIDEM 5 MG TABLET PO PRN (18:31)
[2019-11-26] MEDS: LOSARTAN 50 MG TABLET PO SCH (21:16)
[2019-11-27] MEDS: METOCLOPRAMIDE 10 MG/2 ML VIAL IV SCH ×2 (06:13→11:56)
[2019-11-27] MEDS: CEFEPIME 2 GM VIAL IV SCH ×2 (06:13→14:36)
[2019-11-27] MEDS: metroNIDAZOLE 500 MG/100 ML BAG IV SCH ×2 (06:13→14:36)
[2019-11-27 06:47] LABS: Basophils # (Auto) 0.05 K/mcL (0.00-0.30); Basophils % (Auto) 0.5 % (0.0-2.0); Eosinophils # (Auto) 0.57 K/mcL (0.00-0.70); Eosinophils % (Auto) 5.2 % (0.0-7.0); Granulocytes % (Auto) 64.3 % (38.0-78.0); Hematocrit 33.7 % (40.1-51.0); Hemoglobin 10.6 g/dL (13.7-17.5); Lymphocytes # (Auto) 1.84 K/mcL (1.50-4.80); Lymphocytes % (Auto) 16.8 % (15.5-49.0); Mean Cell Volume 69.9 fL (80.0-100.0); Mean Corpuscular HGB Conc 31.5 g/dL (31.0-36.0); Mean Platelet Volume 9.6 fL (7.4-10.4); Monocytes # (Auto) 1.44 K/mcL (0.10-0.90); Monocytes % (Auto) 13.2 % (1.0-12.0); Platelet Count 314 K/mcL (140-440); RBC 4.82 M/mcL (4.63-6.08); Red Cell Distribution Width 20.7 % (11.5-14.5); WBC 10.9 K/mcL (4.50-11.00)
[2019-11-27 07:08] LABS: ALT/SGPT 9 U/l (0-40); AST/SGOT 16 U/l (0-37); Albumin 3.7 gm/dL (3.2-5.2); Albumin/Globulin Ratio 1.4 (1.0-2.3); Alkaline Phosphatase 64 U/L (39-117); Bilirubin,Direct < 0.2 mg/dL (0.0-0.3); Bilirubin,Total 0.4 mg/dL (0.0-1.0); Blood Urea Nitrogen 10 mg/dl (8-23); Carbon Dioxide 21 mmol/L (22-30); Chloride 102 mmol/L (96-108); Globulin 2.7 gm/dL (2.2-3.7); Glomerular Filtration Rate 83; Glucose 96 mg/dL (70-105); Lactate Dehydrogenase 183 U/L (94-250); Triglycerides 87 mg/dl (<150)
[2019-11-27] MEDS: metFORMIN 500 MG TABLET PO SCH ×2 (07:08→18:33)
[2019-11-27] MEDS: LOSARTAN 50 MG TABLET PO SCH (07:08)
[2019-11-27] MEDS ORDERED: HYDROCHLOROTHIAZIDE 12.5 MG CAPSULE PO SCH (09:00)
[2019-11-27] MEDS ORDERED: amLODIPine 5 MG TABLET PO SCH (09:00)
--- NOTE | 2019-11-27 16:25 | Discharge Summary ---
Discharge Provider Provider Patient information: Note initiated : 11/27/19 at 4:22 pm Service Date, if different from initiated Date: [] Patient: Tarun Alvarez 74 y/o M admitted on 11/21/19 for Colostomy Takedown. Chief Complaint: [] Date of admission: 11/21/19 05:01 Discharge date: 11/27/19 Primary care physician: Maury Romero Admitting clinician: Gladys Hewitt Attending physician on admission: Galdys Hewitt Attending physician on discharge: Gladys Hewitt Discharging clinician: Gladys Hewitt COURSE Hospital Course Hospital Course: 74-year-old male who was admitted postoperatively for colostomy takedown. He has done exceptionally well and is now having a regular diet and has regular bowel movements. He has been afebrile. White count 3.3, BUN 10, creatinine 0.9, white blood count 10.9. Patient is clinically stable for discharge home Discharge diagnosis: .colostomy status Secondary discharge diagnosis: diabetes mellitus Hypertension Obstructive sleep apnea Reason for admission: postoperative colostomy status post Procedures: colostomy takedown Pertinent studies/significant findings: none Complications: none Time Spent with Patient Time attestation: Total time spent providing and/or coordinating discharge services: Physical Examination Vital Signs Vital signs: Temp Pulse Resp BP Pulse Ox 98.6 F 69 20 157/89 96 11/27/19 12:00 11/27/19 12:00 11/27/19 12:00 11/27/19 12:00 11/27/19 12:00 General physical appearance General physical exam: well nourished and no distress Eyes Eye exam: PERRL and normal ocular movement ENT ENT exam: normal pinna, normal nares, normal mucosa and no hearing loss Head Head exam IM: Present atraumatic, normal inspection and normocephalic Neck Neck exam: no masses, no bruits, trachea midline and no lymphadenopathy Cardiovascular Cardiovascular exam IM: Present normal rate and rhythm, RRR, +S1 and +S2; Absent gallop Respiratory Respiratory exam: normal expansion, normal respiratory effort, clear to percussion, clear to auscultation and other Abdomen Abdomen: Present soft, non tender, bowel sounds and surgical scars (incision looks good; RAPHAEL drainage is serous) Neurologic Neurologic: Present normal coordination and normal sensation Musculoskeletal Musculoskeletal: Present normal gait and normal posture Psychiatric Psychiatric: Present oriented to time, oriented to person, oriented to place, speech is normal, memory intact and other Discharge Plan Patient/Caregiver Discharge Instructions Activity: increase activity as tolerated Diet: Regular Diet Prescriptions: New oxycodone 10 mg tablet 10 mg PO Q4H PRN (Reason: pain) Qty: 30 RF: 0 Continued simvastatin 40 mg tablet 40 mg PO QPM 90 Days Qty: 90 RF: 1 hydrochlorothiazide 12.5 mg tablet 12.5 mg tablet 12.5 mg PO QDAY 90 Days Qty: 90 RF: 1 losartan 50 mg tablet 25 mg PO BID 90 Days Qty: 90 RF: 1 allopurinol 300 mg tablet 300 mg PO QDAY 90 Days Qty: 90 RF: 1 sodium chloride 88 ML aerosol,spray 1 spray NS DAILYP PRN (Reason: DRY NOSE) RF: 0 uodbynbi-gmkn-QM-calcium-mins 1 TAB Tablet 1 tab PO DAILY RF: 0 Biotene Dry Mouth Oral Rinse 1 applic MUCOUS MEM DAILYP PRN (Reason: Dry Mouth) RF: 0 MegaRed [place]-3 Krill Oil 1 cap PO DAILY RF: 0 cholecalciferol (vitamin D3) 1,000 unit capsule 1,000 unit PO DAILY RF: 0 felodipine 2.5 mg tablet extended release 24 hr 2.5 mg PO QDAY Qty: 90 RF: 3 peg 3350-electrolytes [Golytely] 236-22.74-6.74 -5.86 gram recon soln 240 ml PO Q10M Qty: 4000 RF: 0 peg 3350-electrolytes [Golytely] 236-22.74-6.74 -5.86 gram recon soln 240 ml PO Q10M Qty: 4000 RF: 0 vitamin B complex 1 CAP capsule 1 cap PO DAILY RF: 0 metformin 500 MG tablet 500 mg PO BIDCC RF: 0 omeprazole 20 MG capsule,delayed release(DR/EC) 20 mg PO QAMAC RF: 0 finasteride 5 MG tablet 5 mg PO HS RF: 0 Follow Up Plan Follow up with: Gladys Hewitt MD [Physician] - Patient Disposition: Home, Self-Care Assessment: patient is discharged home in stable satisfactory condition Prognosis: Good Rehab Potential: Good I certify that the patient requires SNF services: No Overall status at discharge: patient is progressing back to baseline Discharge Orders: Discharge Order (Routine); Ordered 11/27/19 Ordered By: Gladys Hewitt Pending Pending Pending: Resuscitation Status Full Code Diet GI Soft/Transitional Start TueNov 25 1714 Amlodipine Besylate (Norvasc) 2.5 mg PO DAILY [facility] Last Admin: 11/27/19 12:08 Dose: 2.5 mg Documented by: PRAVEEN Cefepime HCl (Maxipime) 2 gm IV Q8H [facility]; Protocol Last Admin: 11/27/19 14:36 Dose: Not Given Documented by: Admin: 11/27/19 06:13 Dose: 2 gm Documented by: Admin: 11/26/19 21:16 Dose: 2 gm Documented by: Admin: 11/26/19 14:43 Dose: 2 gm Documented by: Admin: 11/26/19 05:56 Dose: 2 gm Documented by: Admin: 11/25/19 21:11 Dose: 2 gm Documented by: Admin: 11/25/19 15:06 Dose: 2 gm Documented by: Admin: 11/25/19 05:38 Dose: 2 gm Documented by: Admin: 11/24/19 20:53 Dose: 2 gm Documented by: Admin: 11/24/19 15:07 Dose: 2 gm Documented by: Admin: 11/24/19 05:47 Dose: 2 gm Documented by: Admin: 11/23/19 20:29 Dose: 2 gm Documented by: Admin: 11/23/19 13:43 Dose: 2 gm Documented by: Admin: 11/23/19 05:52 Dose: 2 gm Documented by: Admin: 11/22/19 22:08 Dose: 2 gm Documented by: Admin: 11/22/19 14:53 Dose: 2 gm Documented by: Admin: 11/22/19 06:05 Dose: 2 gm Documented by: Admin: 11/21/19 22:30 Dose: 2 gm Documented by: PAT Diagnostic Test (Pha) (Accu-Chek) 1 each FS ACHS [facility] Last Admin: 11/27/19 11:59 Dose: 1 each Documented by: Admin: 11/27/19 07:10 Dose: 1 each Documented by: Admin: 11/26/19 21:31 Dose: 1 each Documented by: Admin: 11/26/19 17:38 Dose: 1 each Documented by: Admin: 11/26/19 11:56 Dose: 1 each Documented by: Admin: 11/26/19 07:21 Dose: 1 each Documented by: PRAVEEN Hydrochlorothiazide (Oretic) 12.5 mg PO DAILY [facility] Last Admin: 11/27/19 07:09 Dose: 12.5 mg Documented by: PRAVEEN Hydromorphone HCl (Dilaudid) 1 mg IV Q2HP PRN; Protocol PRN Reason: Per Pain Protocol Last Admin: 11/24/19 19:07 Dose: 1 mg Documented by: Admin: 11/24/19 03:53 Dose: 1 mg Documented by: Admin: 11/23/19 20:29 Dose: 1 mg Documented by: Admin: 11/23/19 09:51 Dose: 1 mg Documented by: Admin: 11/23/19 05:48 Dose: 1 mg Documented by: Admin: 11/22/19 23:35 Dose: 1 mg Documented by: Admin: 11/22/19 19:32 Dose: 1 mg Documented by: Admin: 11/22/19 15:02 Dose: 1 mg Documented by: Admin: 11/22/19 09:20 Dose: 1 mg Documented by: Admin: 11/22/19 04:26 Dose: 1 mg Documented by: Admin: 11/21/19 22:30 Dose: 1 mg Documented by: Admin: 11/21/19 16:18 Dose: 1 mg Documented by: Admin: 11/21/19 13:54 Dose: 1 mg Documented by: INCOLE Metronidazole (Flagyl) 500 mg in 100 mls @ 100 mls/hr IV Q8H [facility]; Protocol Last Admin: 11/27/19 14:36 Dose: Not Given Documented by: Infusion: 11/27/19 07:15 Dose: 0 mls/hr Documented by: Admin: 11/27/19 06:13 Dose: 100 mls/hr Documented by: Infusion: 11/26/19 22:16 Dose: 100 mls/hr Documented by: Admin: 11/26/19 21:16 Dose: 100 mls/hr Documented by: [email or web address] Infusion: 11/26/19 15:50 Dose: 0 mls/hr Documented by: Admin: 11/26/19 14:46 Dose: 100 mls/hr Documented by: Infusion: 11/26/19 06:58 Dose: 100 mls/hr Documented by: Admin: 11/26/19 05:58 Dose: 100 mls/hr Documented by: Infusion: 11/25/19 22:11 Dose: 100 mls/hr Documented by: Admin: 11/25/19 21:11 Dose: 100 mls/hr Documented by: Infusion: 11/25/19 17:10 Dose: 0 mls/hr Documented by: Admin: 11/25/19 15:07 Dose: 100 mls/hr Documented by: Infusion: 11/25/19 09:17 Dose: 0 mls/hr Documented by: Admin: 11/25/19 05:38 Dose: 100 mls/hr Documented by: Infusion: 11/24/19 21:53 Dose: 100 mls/hr Documented by: FRANCESCACURISHABH Admin: 11/24/19 20:53 Dose: 100 mls/hr Documented by: Infusion: 11/24/19 18:02 Dose: 0 mls/hr Documented by: Admin: 11/24/19 15:01 Dose: 100 mls/hr Documented by: Infusion: 11/24/19 07:00 Dose: 0 mls/hr Documented by: Admin: 11/24/19 05:47 Dose: 100 mls/hr Documented by: Infusion: 11/23/19 21:28 Dose: 100 mls/hr Documented by: Admin: 11/23/19 20:28 Dose: 100 mls/hr Documented by: Infusion: 11/23/19 14:43 Dose: 0 mls/hr Documented by: Admin: 11/23/19 13:43 Dose: 100 mls/hr Documented by: Infusion: 11/23/19 06:49 Dose: 0 mls/hr Documented by: Admin: 11/23/19 05:49 Dose: 100 mls/hr Documented by: Infusion: 11/22/19 23:08 Dose: 100 mls/hr Documented by: Admin: 11/22/19 22:08 Dose: 100 mls/hr Documented by: Infusion: 11/22/19 15:53 Dose: 0 mls/hr Documented by: Admin: 11/22/19 14:53 Dose: 100 mls/hr Documented by: Infusion: 11/22/19 07:10 Dose: 0 mls/hr Documented by: Admin: 11/22/19 06:10 Dose: 100 mls/hr Documented by: Infusion: 11/21/19 23:35 Dose: 100 mls/hr Documented by: Admin: 11/21/19 22:35 Dose: 100 mls/hr Documented by: Infusion: 11/21/19 16:11 Dose: 100 mls/hr Documented by: Admin: 11/21/19 15:11 Dose: 100 mls/hr Documented by: NICOLE Acetaminophen (Ofirmev) 650 mg in 65 mls @ 130 mls/hr IV Q4HP PRN; Protocol PRN Reason: PAIN/FEVER > 101 Last Admin: 11/24/19 22:28 Dose: 130 mls/hr Documented by: SERGEY Losartan Potassium (Cozaar) 25 mg PO BID [facility] Last Admin: 11/27/19 07:08 Dose: 25 mg Documented by: Admin: 11/26/19 21:16 Dose: 25 mg Documented by: TACO Metformin HCl (Glucophage) 500 mg PO BIDCC [facility] Last Admin: 11/27/19 07:08 Dose: 500 mg Documented by: PRAVEEN Metoclopramide HCl (Reglan) 5 mg IV Q6 [facility] Last Admin: 11/27/19 11:56 Dose: 5 mg Documented by: Admin: 11/27/19 06:13 Dose: 5 mg Documented by: Admin: 11/26/19 23:55 Dose: 5 mg Documented by: Admin: 11/26/19 17:42 Dose: 5 mg Documented by: Admin: 11/26/19 11:54 Dose: 5 mg Documented by: Admin: 11/26/19 05:56 Dose: 5 mg Documented by: Admin: 11/26/19 00:50 Dose: 5 mg Documented by: Admin: 11/25/19 17:42 Dose: 5 mg Documented by: Admin: 11/25/19 12:23 Dose: 5 mg Documented by: Admin: 11/25/19 05:37 Dose: 5 mg Documented by: Admin: 11/24/19 23:25 Dose: 5 mg Documented by: Admin: 11/24/19 17:59 Dose: 5 mg Documented by: Admin: 11/24/19 11:40 Dose: 5 mg Documented by: Admin: 11/24/19 05:47 Dose: 5 mg Documented by: Admin: 11/23/19 23:44 Dose: 5 mg Documented by: Admin: 11/23/19 17:52 Dose: 5 mg Documented by: Admin: 11/23/19 12:20 Dose: 5 mg Documented by: Admin: 11/23/19 06:01 Dose: 5 mg Documented by: Admin: 11/22/19 23:35 Dose: 5 mg Documented by: Admin: 11/22/19 17:51 Dose: 5 mg Documented by: LISAORGAN Shift Summary 11/27/19 04:16 Shift Summary by Marie Gonzalez Pt slept most of the night. Up w/SBA & FWW. Voiding per urinal, or in BR when having loose BM. States BM not getting much more solid yet. Took a shower last night; abd dressings changed afterwards. RAPHAEL putting out small amounts serous drainage. Ambulated to the shower w/FWW & SBA; did become winded by end of each one way trip, but recovered quickly. Has not had any PRN meds. Plan is to d/c this afternoon. Initialized on 11/27/19 04:16 - END OF NOTE
--- NOTE | 2019-12-04 12:43 | Operative Note ---
DATE OF OPERATION: 11/21/2019 PREOPERATIVE DIAGNOSIS: Colostomy status. POSTOPERATIVE DIAGNOSIS: Colostomy status. PROCEDURE: Colostomy takedown with reanastomosis. SURGEON: Gladys Hewitt M.D. DESCRIPTION OF PROCEDURE: Under general anesthesia, the patient's abdomen was prepped and draped in a sterile field. Timeout procedure was carried out as per protocol. The stoma had been closed with running 2-0 silk prior to the prep. The abdominal wall was covered with a Vi-drape. Lower midline incision was made and extended above the umbilicus. There were extensive adhesions in the pelvis. The omentum was plastered to the peritoneal surfaces. These were taken down with Metzenbaum scissors and electrocautery. The omentum was then dissected from the small bowel, and the small bowel was then positioned in the upper abdomen, and the Bookwalter retractor was placed. The rectal stump was very thickened and contracted. It was identified by the Prolene sutures. With the sutures placed on slight tension, I was able to dissect circumferentially around the thickened, contracted rectal stump. Before taking down the stoma, I elected to open the stump to check the mucosa, and the mucosa appeared to be healthy, though it was still darkened from the large volume of ink that had been placed by the equipment service engineer. In spite of the ink color, there was adequate bleeding, and it was felt that it would be adequate for reanastomosis. The stoma was then taken down. There was good length for reanastomosis, and it was elected to do an end-to-end. An end-to-end anastomosis was done using an inner layer of running 2-0 Monocryl and an outer layer of running 2-0 Prolene. The anastomosis was adequately sealed. A Douglas drain was placed and brought out in the right lower quadrant. Irrigation was carried out. The fascia and muscle in the stoma site was closed with two rows of 0 Prolene. Pelvis was irrigated and the retractor was removed. Sponge, needle, instrument, and blade counts were verified as correct. Fascia and peritoneum in the midline were closed with running locking #1 Prolene. Subcutaneous tissue was closed with running 2-0 Monocryl. Skin was closed with angelique in both incisions. Tegaderm dressings were placed. The patient tolerated the procedure well. He was awakened, transferred to a bed, and taken to the postanesthetic care unit in satisfactory condition. LCS:justina Job ID: [id number] Doc ID: [id number] Gladys Hewitt M.D.
== END 2019-11-27 18:25 | disposition home or self-care (01) | DRG 331 ==
LOC: MEDSUR 05:01
PROVIDERS: ADMIT Family Medicine Adult Medicine; ATTEND Family Medicine Adult Medicine